=== PATIENT | female | born 1965 | race African-American/Black ===

== ENCOUNTER 2020-02-25 22:10 | Inpatient (IN) | payer MEDICARE ==
[~2020-02-25] VITALS: Ht 157.5 cm; Wt 77.0 kg
[~2020-02-25 22:10] MED LIST: BENADRYL25 MG ORAL; PEPCID20 MG ORAL; REGLAN10 MG ORAL
--- NOTE | 2020-02-26 01:00 | NUR ---
NURSE NOTES: Received patient from [facility] via ambulance. Patient arrived in [facility], patient able to transfer to hospital bed with no assist. Witnessed patient ambulate to bathroom with steady gait. Patient arrived with 2 IV access from [place]. Both patent, flushed with normal saline. Paged Dr Dalton for admission orders. VSS. Patient cellphone charging at nurse station.
[2020-02-26] MEDS: Morphine Sulfate 2mg/ml Inj(IV/IM USE ONLY) IVP PRN ×3 (01:36→20:19)
[2020-02-26] MEDS ORDERED: HYDROcodone/Acetamin 5/325 tab ORAL PRN (01:45)
[2020-02-26 02:01] VITALS: BP 118/78
[2020-02-26] MEDS: D5 1/2NS w/KCl 20mEq 1,000 ML IV SCH ×2 (02:17→18:17)
--- NOTE | 2020-02-26 03:00 | NUR ---
NURSE NOTES: Returned patient's cellphone after charging at nurse station.
--- NOTE | 2020-02-26 07:20 | NUR ---
NURSE NOTES: Received report from DAINA Boykin. Patient received lying in hospital bed, AAO x 4, able to make needs known, ambulatory with steady gait. Pt is on RA in no apparent respiratory distress. Pt is NPO except ice chips and meds d/t nausea. Pt still has c/o nausea but no vomiting reported per fast food shift lead. Pt Pt has pIV to R FA 20g running D5NS with 20mEq of KCl running 75 ml/hr and another pIV to L Hand 22g. LBM on 02/25/20. Skin intact. Pending MRI of abd without contrast today. Will continue POC.
--- NOTE | 2020-02-26 07:33 | NUR ---
HAND-OFF: Report given to DAINA Batres.
[2020-02-26 08:00] VITALS: BP 124/86
[2020-02-26 10:02] LABS: BASOPHILS % (AUTO) 2.4 % (0.0-2.0); EOSINOPHILS % (AUTO) 2.5 % (0.0-3.0); HEMATOCRIT 31.4 % (37.0-47.0); LYMPHOCYTES % (AUTO) 27.2 % (20.0-45.0); MEAN CORPUSCULAR VOLUME 86 FL (80-99); MONOCYTES % (AUTO) 10.7 % (1.0-10.0); NEUTROPHILS % (AUTO) 57.1 % (45.0-75.0); PLATELET COUNT 376 K/UL (150-450); RED BLOOD COUNT 3.66 M/UL (4.20-5.40); RED CELL DISTRIBUTION WIDTH 14.2 % (11.6-14.8); WHITE BLOOD COUNT 7.3 K/UL (4.8-10.8)
[2020-02-26 10:20] LABS: ALANINE AMINOTRANSFERASE 30 U/L (12-78); ALBUMIN 3.2 G/DL (3.4-5.0); ALBUMIN/GLOBULIN RATIO 0.9 (1.0-2.7); ALKALINE PHOSPHATASE 165 U/L (46-116); ANION GAP 8 mmol/L (5-15); ASPARTATE AMINO TRANSFERASE 44 U/L (15-37); BILIRUBIN,TOTAL 0.7 MG/DL (0.2-1.0); BLOOD UREA NITROGEN 5 mg/dL (7-18); CALCIUM 8.3 MG/DL (8.5-10.1); CARBON DIOXIDE 26 MMOL/L (21-32); CHLORIDE 103 MMOL/L (98-107); CREATININE 0.8 MG/DL (0.55-1.30); PHOSPHORUS 2.2 MG/DL (2.5-4.9); POTASSIUM 3.3 MMOL/L (3.5-5.1); SODIUM 137 MMOL/L (136-145)
--- NOTE | 2020-02-26 11:26 | History & Physical ---
History and Physical History & Physicial Dictated for Int Med-Dr Dalton no. [id number]. Ho Reynolds MD Feb 26, 2020 11:26
[2020-02-26] MEDS: Heparin 5000 units/ml inj SUBQ SCH ×2 (11:29→22:10)
--- NOTE | 2020-02-26 11:45 | Consultation ---
History of Present Illness General Date patient seen: Feb 26, 2020 Present Illness HPI 54 year old female with hx of cholecystectomy, gastric bypass presented to [facility] with CC of abdominal and flank pain. A CT of abdomen showed stranding surrounding both kidneys with fluid density extending into the paracolic gutters bilaterally. She is transferred to [facility] for further management. Allergies: Coded Allergies: No Known Allergies (Unverified , 05/14/16) Medication History Scheduled Famotidine (Pepcid), 20 MG ORAL Q12HR Metoclopramide Hcl* (Reglan*), 10 MG ORAL Q6HR Scheduled PRN Diphenhydramine Hcl* (Benadryl*), 25 MG ORAL BID PRN for Itching Patient History Healthcare decision maker Resuscitation status Advanced Directive on File Past Medical/Surgical History Past Medical/Surgical History: (1) History of gastric bypass (2) Hx of cholecystectomy (3) Hx of hysterectomy Review of Systems All Other Systems: negative except mentioned in HPI Physical Exam General Appearance: WD/WN Lines, tubes and drains: peripheral HEENT: normocephalic, atraumatic Neck: non-tender, supple Respiratory/Chest: chest wall non-tender, lungs clear Breasts: no masses Cardiovascular/Chest: normal peripheral pulses, normal rate Abdomen: normal bowel sounds, non tender Genitourinary/Rectal: normal genital exam Extremities: normal range of motion, non-tender Last 24 Hour Vital Signs Date Time Temp Pulse Resp B/P (MAP) Pulse Ox O2 Delivery O2 Flow Rate FiO2 02/26/20 09:00 Room Air 02/26/20 08:00 98.7 67 20 124/86 (99) 98 02/26/20 05:56 97.9 02/26/20 02:06 97.9 02/26/20 02:01 97.9 68 20 118/78 (91) 100 02/26/20 01:56 Room Air Intake and Output 02/25/20 02/26/20 19:00 07:00 Intake Total 0 ml Balance 0 ml Intake Oral 0 ml # Voids 2 Laboratory Tests Test 02/26/20 09:50 White Blood Count 7.3 K/UL (4.8-10.8) Red Blood Count 3.66 M/UL (4.20-5.40) L Hemoglobin 10.0 G/DL (12.0-16.0) L Hematocrit 31.4 % (37.0-47.0) L Mean Corpuscular Volume 86 FL (80-99) Mean Corpuscular Hemoglobin 27.5 PG (27.0-31.0) Mean Corpuscular Hemoglobin Concent 31.9 G/DL (32.0-36.0) L Red Cell Distribution Width 14.2 % (11.6-14.8) Platelet Count 376 K/UL (150-450) Mean Platelet Volume 4.4 FL (6.5-10.1) L Neutrophils (%) (Auto) 57.1 % (45.0-75.0) Lymphocytes (%) (Auto) 27.2 % (20.0-45.0) Monocytes (%) (Auto) 10.7 % (1.0-10.0) H Eosinophils (%) (Auto) 2.5 % (0.0-3.0) Basophils (%) (Auto) 2.4 % (0.0-2.0) H Erythrocyte Sedimentation Rate 32 MM/HR (0-30) H Sodium Level 137 MMOL/L (136-145) Potassium Level 3.3 MMOL/L (3.5-5.1) L Chloride Level 103 MMOL/L (98-107) Carbon Dioxide Level 26 MMOL/L (21-32) Anion Gap 8 mmol/L (5-15) Blood Urea Nitrogen 5 mg/dL (7-18) L Creatinine 0.8 MG/DL (0.55-1.30) Estimat Glomerular Filtration Rate > 60 mL/min (>60) Glucose Level 101 MG/DL (74-106) Calcium Level 8.3 MG/DL (8.5-10.1) L Phosphorus Level 2.2 MG/DL (2.5-4.9) L Magnesium Level 1.9 MG/DL (1.8-2.4) Total Bilirubin 0.7 MG/DL (0.2-1.0) Aspartate Amino Transf (AST/SGOT) 44 U/L (15-37) H Alanine Aminotransferase (ALT/SGPT) 30 U/L (12-78) Alkaline Phosphatase 165 U/L (46-116) H C-Reactive Protein, Quantitative < 0.4 mg/dL (0.00-0.90) Total Protein 6.9 G/DL (6.4-8.2) Albumin 3.2 G/DL (3.4-5.0) L Globulin 3.7 g/dL Albumin/Globulin Ratio 0.9 (1.0-2.7) L Height (Feet): 5 Height (Inches): 2.00 Weight (Pounds): 174 Medications Current Medications Medications (Trade) Dose Ordered Sig/Veronica Route PRN Reason Start Time Stop Time Status Last Admin Dose Admin Acetaminophen (Tylenol) 650 mg Q6H PRN ORAL Temp >100.5 02/26/20 01:45 03/27/20 01:44 Acetaminophen/ Hydrocodone Bitart ([place] 5/325) 2 tab Q6H PRN ORAL Moderate Pain (Pain Scale 4-6) 02/26/20 01:45 03/04/20 01:44 Dextrose/ Electrolytes 1,000 ml @ 75 mls/hr [id number] IV 02/26/20 02:30 03/27/20 02:29 02/26/20 02:17 Heparin Sodium (Porcine) (Heparin 5000 units/ml) 5,000 units EVERY 12 HOURS SUBQ 02/26/20 11:15 04/11/20 11:14 02/26/20 11:29 Morphine Sulfate (Morphine Sulfate) 2 mg Q4H PRN IVP Severe Pain (Pain Scale 7-10) 02/26/20 01:30 03/04/20 01:29 02/26/20 05:26 Ondansetron HCl (Zofran) 4 mg Q6H PRN IVP Nausea & Vomiting 02/26/20 01:30 03/27/20 01:29 02/26/20 03:15 Piperacillin Sod/ Tazobactam Sod 3.375 gm/Sodium Chloride 110 ml @ 27.5 mls/hr EVERY 8 HOURS IVPB 02/26/20 14:00 03/02/20 13:59 Assessment/Plan Problem List: (1) Acute abdominal pain ICD Codes: R10.9 - Unspecified abdominal pain SNOMED: 357063168 (2) Acute pyelonephritis ICD Codes: N10 - Acute pyelonephritis SNOMED: 60594032 (3) Hx of hysterectomy ICD Codes: Z90.710 - Acquired absence of both cervix and uterus SNOMED: 620389161, 557937189 (4) Hx of cholecystectomy ICD Codes: Z90.49 - Acquired absence of other specified parts of digestive tract SNOMED: 59566101, 829620444 (5) History of gastric bypass ICD Codes: Z98.84 - Bariatric surgery status SNOMED: 893549267 Assessment/Plan: NPO IV fluids alonso culture IV abx GI and ID to see check urine cultures symptomatic treatment dvt prophylaxis. Harriet Gilmore MD Feb 26, 2020 11:45
[2020-02-26 11:51] LABS: LACTATE DEHYDROGENASE 238 U/L (81-234)
[2020-02-26 12:00] VITALS: BP 127/82
--- NOTE | 2020-02-26 12:27 | Consultation ---
History of Present Illness General Date patient seen: Feb 26, 2020 Present Illness HPI 54 y/o F with hx of cholecystectomy 1999, sp gastric bypass 2000, sp hysterectomy 2007 is transferred from [place] to [facility] for 1 day of severe and acute abd pain and flank pain radiating to back. +nausea. She describes the pain as worse as any of her labor pains and she has 6 kids. Did not happened before. Had some anorexia. Noted that she single petechial lesion on L wrist but that she has had similar lesions on her L foot in the past. Also endorses occasional L leg cramping. Denied falls/trauma, f/c, vomiting, dysuria, hematuria, weakness/numbness, CP, SOB, vaginal discharge, joint pain/swelling, wt loss. Allergies: Coded Allergies: No Known Allergies (Unverified , 05/14/16) Medication History Scheduled Famotidine (Pepcid), 20 MG ORAL Q12HR Metoclopramide Hcl* (Reglan*), 10 MG ORAL Q6HR Scheduled PRN Diphenhydramine Hcl* (Benadryl*), 25 MG ORAL BID PRN for Itching Patient History Healthcare decision maker Resuscitation status Advanced Directive on File Patient History Narrative Pmhx: as above Shx: no t/e Fhx: non contributory Review of Systems All Other Systems: negative except mentioned in HPI Physical Exam Physical Exam Narrative General Appearance: WD/WN Lines, tubes and drains: peripheral HEENT: normocephalic, atraumatic Neck: non-tender, supple Respiratory/Chest: chest wall non-tender, lungs clear Cardiovascular/Chest: normal peripheral pulses, normal rate Abdomen: normal bowel sounds, non tender Extremities: normal range of motion, non-tender Last 24 Hour Vital Signs Date Time Temp Pulse Resp B/P (MAP) Pulse Ox O2 Delivery O2 Flow Rate FiO2 02/26/20 12:00 98.3 72 19 127/82 (97) 98 02/26/20 09:00 Room Air 02/26/20 08:00 98.7 67 20 124/86 (99) 98 02/26/20 05:56 97.9 02/26/20 02:06 97.9 02/26/20 02:01 97.9 68 20 118/78 (91) 100 02/26/20 01:56 Room Air Intake and Output 02/25/20 02/26/20 19:00 07:00 Intake Total 0 ml Balance 0 ml Intake Oral 0 ml # Voids 2 Laboratory Tests Test 02/26/20 09:50 White Blood Count 7.3 K/UL (4.8-10.8) Red Blood Count 3.66 M/UL (4.20-5.40) L Hemoglobin 10.0 G/DL (12.0-16.0) L Hematocrit 31.4 % (37.0-47.0) L Mean Corpuscular Volume 86 FL (80-99) Mean Corpuscular Hemoglobin 27.5 PG (27.0-31.0) Mean Corpuscular Hemoglobin Concent 31.9 G/DL (32.0-36.0) L Red Cell Distribution Width 14.2 % (11.6-14.8) Platelet Count 376 K/UL (150-450) Mean Platelet Volume 4.4 FL (6.5-10.1) L Neutrophils (%) (Auto) 57.1 % (45.0-75.0) Lymphocytes (%) (Auto) 27.2 % (20.0-45.0) Monocytes (%) (Auto) 10.7 % (1.0-10.0) H Eosinophils (%) (Auto) 2.5 % (0.0-3.0) Basophils (%) (Auto) 2.4 % (0.0-2.0) H Neutrophils % (Manual) Pending Lymphocytes % (Manual) Pending Platelet Estimate Pending Platelet Morphology Pending Erythrocyte Sedimentation Rate 32 MM/HR (0-30) H Reticulocyte Count Pending Sodium Level 137 MMOL/L (136-145) Potassium Level 3.3 MMOL/L (3.5-5.1) L Chloride Level 103 MMOL/L (98-107) Carbon Dioxide Level 26 MMOL/L (21-32) Anion Gap 8 mmol/L (5-15) Blood Urea Nitrogen 5 mg/dL (7-18) L Creatinine 0.8 MG/DL (0.55-1.30) Estimat Glomerular Filtration Rate > 60 mL/min (>60) Glucose Level 101 MG/DL (74-106) Calcium Level 8.3 MG/DL (8.5-10.1) L Phosphorus Level 2.2 MG/DL (2.5-4.9) L Magnesium Level 1.9 MG/DL (1.8-2.4) Iron Level Pending Unsaturated Iron Binding Pending Total Bilirubin 0.7 MG/DL (0.2-1.0) Aspartate Amino Transf (AST/SGOT) 44 U/L (15-37) H Alanine Aminotransferase (ALT/SGPT) 30 U/L (12-78) Alkaline Phosphatase 165 U/L (46-116) H Lactate Dehydrogenase 238 U/L (81-234) H C-Reactive Protein, Quantitative < 0.4 mg/dL (0.00-0.90) Total Protein 6.9 G/DL (6.4-8.2) Albumin 3.2 G/DL (3.4-5.0) L Globulin 3.7 g/dL Albumin/Globulin Ratio 0.9 (1.0-2.7) L Carcinoembryonic Antigen Pending Vitamin B12 Level Pending Folate Pending Height (Feet): 5 Height (Inches): 2.00 Weight (Pounds): 174 Medications Current Medications Medications (Trade) Dose Ordered Sig/Veronica Route PRN Reason Start Time Stop Time Status Last Admin Dose Admin Acetaminophen (Tylenol) 650 mg Q6H PRN ORAL Temp >100.5 02/26/20 01:45 03/27/20 01:44 Acetaminophen/ Hydrocodone Bitart ([place] 5/325) 2 tab Q6H PRN ORAL Moderate Pain (Pain Scale 4-6) 02/26/20 01:45 03/04/20 01:44 Dextrose/ Electrolytes 1,000 ml @ 75 mls/hr [id number] IV 02/26/20 02:30 03/27/20 02:29 02/26/20 02:17 Heparin Sodium (Porcine) (Heparin 5000 units/ml) 5,000 units EVERY 12 HOURS SUBQ 02/26/20 11:15 04/11/20 11:14 02/26/20 11:29 Morphine Sulfate (Morphine Sulfate) 2 mg Q4H PRN IVP Severe Pain (Pain Scale 7-10) 02/26/20 01:30 03/04/20 01:29 02/26/20 05:26 Ondansetron HCl (Zofran) 4 mg Q6H PRN IVP Nausea & Vomiting 02/26/20 01:30 03/27/20 01:29 02/26/20 03:15 Piperacillin Sod/ Tazobactam Sod 3.375 gm/Sodium Chloride 110 ml @ 27.5 mls/hr EVERY 8 HOURS IVPB 02/26/20 14:00 03/02/20 13:59 Assessment/Plan Assessment/Plan: Abx: Zosyn 02/25- Assessment: COVID19 neg x1 (02/24 SARS-COV2 PCR neg) Afebrile No leukocytosis Abdominal pain- unclear etiology- there is stranding and retroperitoneal infiltration but normal u/a, no abnormal kidney enhacement. no obvious pathology on imaging- r/o infectious vs inflammatory- r/o small vessel vasculitis (has a single petechial lesion on L wrist and hx of pethechial lession on L foot) -02/24 CT abd/p wo (at OSH): Stranding surrounding both kidneys with fluid density extending into the paracolic gutters bilaterally. Underlying pyelonephritis cannot be excluded due to non IV Contrast. Starnding also seen surrouding the posterior aspect of the pancreas which may be secondary to inflammatory changes surrounding the kidneys. CTA thoracic, abd and pelvic aorta: No aneurysms or dissection. Abnormal retroperitoneal infiltration with fat stranding and infiltration of the retroperitoneal fat, seen in the mediastinum as well as surrounding both kidneys, aorta and IVC and extending inferiorly into the presacral space of the pelvis. A source of inflammation is not evident on this exam. Normal renal enhancement, no findings which would suggest pyelonephritis. -02/24 US transvaginal (at OSH): Post hysterectomy, ovaries not visualized u/a neg nit, leuk est neg lipase, lactic acid normal ESR 21, CRP <0.2 Mild ASt elevation sp cholecystectomy 1999 sp gastric bypass 2000 sp hysterectomy 2007 Plan: -Continue empiric Zosyn #1 for now -f/u cx -Monitor CBC/CMP, temperatures; CMP am -u/a w/ reflex, HIV ag/ab, Acute hep panel -vasculitis and autoimmune work up Thank you for this consultation. Will continue to follow along with you. Discussed with Cindi Correia M.D. Feb 26, 2020 12:27
[2020-02-26 12:31] LABS: % IRON SATURATION 34 % (15-50); IRON 136 ug/dL (50-175); TOTAL IRON BINDING CAPACITY 395 ug/dL (250-450)
--- NOTE | 2020-02-26 13:15 | History and Physical Report ---
DATE OF ADMISSION: 02/26/2020 CHIEF COMPLAINT: The patient is a 54-year-old female who presents with a chief complaint of abdominal pain. HISTORY OF PRESENT ILLNESS: Began yesterday February 25, 2020 in the morning. The patient awoke with right lower quadrant pain. The pain then began to radiate to the right flank and right back. The patient initially presented to [facility] emergency room. A CT of the abdomen revealed stranding around the bilateral kidneys consistent with pyelonephritis. The patient was started on Zosyn at [facility]. The patient was transferred to [facility] for insurance purposes. The patient was admitted with right flank pain to rule out pyelonephritis versus renal calculi. REVIEW OF SYSTEMS: CONSTITUTIONAL: The patient denies weight loss or weight gain. The patient denies fevers or chills. HEENT: The patient denies ear or throat pain. The patient denies headache. CARDIOVASCULAR: The patient denies palpitation or chest pain. CHEST: The patient denies wheeze or shortness of breath. ABDOMINAL: The patient complains of right lower quadrant pain radiating to the right flank and right back as above. The patient admits to nausea without vomiting. The patient denies constipation or diarrhea. GENITOURINARY: The patient denies dysuria or increased frequency of urination. NEUROMUSCULAR: The patient denies seizures or generalized weakness. PAST MEDICAL HISTORY: The patient denies. PAST SURGICAL HISTORY: Significant for: 1. Cholecystectomy in 1999. 2. Gastric bypass in 2000. 3. Hysterectomy in 2007. CURRENT MEDICATIONS: The patient denies. ALLERGIES: To Naprosyn. SOCIAL HISTORY: The patient is . The patient lives with her adult daughter. The patient denies tobacco or alcohol use. The patient works in [employer]. PHYSICAL EXAMINATION: VITAL SIGNS: Temperature 97.7, respirations 16, pulse 64, blood pressure 147/77. GENERAL: The patient is well-developed and well-nourished female, in no apparent distress. HEENT: Eyes, pupils are equal and responsive to light and accommodation. Extraocular movements are intact. NECK: Supple without lymphadenopathy. CHEST: Lungs are clear to auscultation bilaterally without wheezes or rales. CARDIOVASCULAR: Regular rhythm and rate. S1-S2 are normal without murmurs, rubs, or gallops. ABDOMEN: Soft, nondistended with decreased bowel sounds. Pain to palpation in the right lower quadrant. There is no rebound noted. Voluntary guarding is noted in the right lower quadrant. NEUROLOGIC: Cranial nerves II through XII are grossly intact without focal deficits. Motor strength is 5/5 bilaterally. Deep tendon reflexes are 2+ plantar. LABORATORY AND DIAGNOSTIC DATA: Laboratory studies from [place], WBC 7.5, hemoglobin 11.9, hematocrit 37.6, platelets 431,000. Sodium 137, potassium 3.7, chloride 103, CO2 21, BUN 8, creatinine 0.64, glucose 119. AST was slightly elevated at 38. Urinalysis showed trace ketones. CT scan of the abdomen and pelvis revealed perinephric stranding bilaterally consistent with pyelonephritis. ASSESSMENT: This is a 54-year-old female. 1. Abdominal pain. 2. Nausea without vomiting. 3. Right flank pain. 4. Probable pyelonephritis. TREATMENT: Abdominal pain/nausea. A Gastroenterology consultation has been obtained with Dr. Alvin Lopez. An MRI of the abdomen is pending. Differential includes right renal calculus versus pyelonephritis. The patient has been started empirically on intravenous Zosyn. We will follow recommendations of Gastroenterology. Ho Reynolds M.D. DR: Constance JOB#: [id number] CC:
--- NOTE | 2020-02-26 13:53 | Diagnostic Imaging Report ---
Indication: Abdominal pain Technique: Coronal and axial single shot fast spin-echo breath-hold, axial T2 FRFSE, 2-D thick slab MRCP, AXIAL 2-D FIESTA fat saturated, axial 3-D dual echo breath-hold, water weighted axial LAVA FLEX, revealed 3-D MRCP images were obtained of the abdomen. MIP reconstructions were generated of the bile ducts Comparison: none Findings: The gallbladder is not visualized, presumably removed as a prior abdominal radiograph demonstrates cholecystectomy clips. There is mild ectasia of the common hepatic duct, which measures up to 9 mm in diameter. The common bile duct is normal in caliber, and there is no evidence of downstream obstructive lesion. Visualization of the intrahepatic ducts is somewhat limited as the dome of the liver is cut off of the exam on the coronal 3-D MRCP images, although intrahepatic ducts are visualized on the radial MRCP images. There is some free intraperitoneal fluid. There is considerable edema of the retroperitoneal fat completely surrounding both kidneys with fluid tracking inferiorly to the kidneys, probably along Gerota's fascia. There is fluid in the pelvis. There is also some edema of the left upper quadrant mesenteric fat. The pancreatic duct is mildly ectatic. The pancreas is equivocally slightly prominent but not frankly edematous. The kidneys are unremarkable in appearance except for a left renal cyst. The liver, spleen, adrenals are unremarkable. No retroperitoneal or mesenteric mass or adenopathy. There is equivocal minimal bladder wall thickening. Impression: Extensive edema, mostly of the retroperitoneal fat but also extending to some extent into the mesenteric root and into the left upper quadrant mesenteric fat. Small amount of associated free intraperitoneal fluid noted as well. Per discussion with referring physician, patient had prior outside CT scan suggesting bilateral pyelonephritis due to the presence of bilateral perinephric fat stranding. Findings could therefore be related to such. Note that no definite intrinsic renal parenchymal abnormality is demonstrated, but evaluation is limited in the absence of IV contrast. Note also that fatty infiltration in this extensive is unusual for nephritis, so the possibility of acute pancreatitis should also be considered. No definite intrinsic parenchymal abnormality noted except that the pancreas is equivocally slightly prominent The equivocal very slight wall thickening of the bladder Evidence of prior cholecystectomy. Mild ectasia of the common hepatic duct, likely related to postcholecystectomy state, but no evidence of biliary obstruction.
[2020-02-26] MEDS: Piperacillin/Tazobactam 3.375 GM in NS 110 ML IVPB SCH ×2 (14:01→22:08)
[2020-02-26 14:07] LABS: APPEARANCE,URINE CLEAR; BILIRUBIN, URINE NEGATIVE (NEGATIVE); COLOR,URINE YELLOW; GLUCOSE, URINE (UA) NEGATIVE (NEGATIVE); KETONES,URINE NEGATIVE (NEGATIVE); LEUKOCYTE ESTERASE ,URINE NEGATIVE (NEGATIVE); NITRITE,URINE NEGATIVE (NEGATIVE); PH,URINE 6 (4.5-8.0); PROTEIN,URINE NEGATIVE (NEGATIVE); UROBILINOGEN,URINE NORMAL MG/DL (0.0-1.0)
[2020-02-26 16:00] VITALS: BP 131/79
--- NOTE | 2020-02-26 16:02 | NUR ---
CASE MANAGEMENT:INITIAL REVIEW 54 YR OLD FEMALE TRANSFERRED TO [facility] FROM [facility];ABDOMINAL PAIN SI;ABDOMINAL PAIN 98.7 72 20 127/82 98% ON RA H/H 10.0/31.4 K+ 3.3 CHE 8.3 AST 44 ALP 135 LDH 238 ALB 3.2 UA - NEGATIVE ABD MRI ~ Extensive edema, mostly of the retroperitoneal fat but also extending to some extent into the mesenteric root and into the left upper quadrant mesenteric fat. Small amount of associated free intraperitoneal fluid noted as well. Per discussion with referring physician, patient had prior outside CT scan suggesting bilateral pyelonephritis due to the presence of bilateral perinephric fat stranding. Findings could therefore be related to such. Note that no definite intrinsic renal parenchymal abnormality is demonstrated, but evaluation is limited in the absence of IV contrast. Note also that fatty infiltration in this extensive is unusual for nephritis, so the possibility of acute pancreatitis should also be considered. No definite intrinsic parenchymal abnormality noted except that the pancreas is equivocally slightly prominent The equivocal very slight wall thickening of the bladder Evidence of prior cholecystectomy. Mild ectasia of the common hepatic vielka IS;MORPHINE IV ZOFRAN IV IVF D5 1/2 NS NORCO PO ADMITTED TO MED SURG MED SURG STATUS DCP;FROM HOME
--- NOTE | 2020-02-26 17:36 | Consultation ---
History of Present Illness General Date patient seen: Feb 26, 2020 Present Illness HPI 54 year old female presented to [facility] [place] from [place] for evaluation of abd pain. states began 1-2 days ago as severe generalized abdominal pain with nausea but no emesis. pain 10/10 cramping sharp. since improved. CT with stranding around kidney. surgery called to evaluate and assist with care. patient seen, chart reviewed patient examined. hx gastric bypass open 20 years ago. hx cholecystectomy. Allergies: Coded Allergies: No Known Allergies (Unverified , 05/14/16) COVID-19 Screening Contact w/high risk pt: No Experienced COVID-19 symptoms?: No Medication History Scheduled Famotidine (Pepcid), 20 MG ORAL Q12HR Metoclopramide Hcl* (Reglan*), 10 MG ORAL Q6HR Scheduled PRN Diphenhydramine Hcl* (Benadryl*), 25 MG ORAL BID PRN for Itching Patient History History Provided By: Patient Healthcare decision maker Resuscitation status Advanced Directive on File Past Medical/Surgical History Past Medical/Surgical History: (1) Acute pyelonephritis (2) Acute abdominal pain (3) Dysphagia (4) Abdominal pain (5) History of gastric bypass (6) Hx of cholecystectomy (7) Hx of hysterectomy Review of Systems Review of Symptoms General ROS: no weight loss or fever Psychological ROS: no depression or mood changes, no memory loss Ophthalmic ROS: no visual changes or eye irritation ENT ROS: no nasal congestion, hearing loss, dizziness Allergy and Immunology ROS: no allergic symptoms or urticaria Hematological and Lymphatic ROS: no swollen glands, unusual bleeding or bruising Endocrine ROS: no polyuria, polydipsia, weight changes, temperature intolerance Respiratory ROS: no cough, shortness of breath, or wheezing Cardiovascular ROS: no chest pain or dyspnea on exertion Gastrointestinal ROS: ++ abdominal pain, bright red blood in stool. Musculoskeletal ROS: no myalgias or arthralgias Neurological ROS: no TIA or stroke symptoms Dermatological ROS: no new or changing skin lesions, rashes or pruritis Physical Exam Physical Exam General appearance: alert, cooperative, no distress, appears stated age Head: Normocephalic, without obvious abnormality, atraumatic Eyes: conjunctivae/corneas clear. PERRL, EOM's intact. Fundi benign Throat: Lips, mucosa, and tongue normal. Teeth and gums normal Neck: supple, symmetrical, trachea midline, no adenopathy, thyroid: not enlarged, symmetric, no tenderness/mass/nodules, no carotid bruit and no JVD Lungs: clear to auscultation bilaterally Heart: regular rate and rhythm, S1, S2 normal, no murmur, click, rub or gallop Abdomen: soft, non-tender. Bowel sounds normal. No masses, no organomegaly Extremities: extremities normal, atraumatic, no cyanosis or edema Pulses: 2+ and symmetric Skin: Skin color, texture, turgor normal. No rashes or lesions Neurologic: Grossly normal Last 24 Hour Vital Signs Date Time Temp Pulse Resp B/P (MAP) Pulse Ox O2 Delivery O2 Flow Rate FiO2 02/26/20 16:00 98.2 70 19 131/79 (96) 98 02/26/20 12:00 98.3 72 19 127/82 (97) 98 02/26/20 09:00 Room Air 02/26/20 08:00 98.7 67 20 124/86 (99) 98 02/26/20 05:56 97.9 02/26/20 02:06 97.9 02/26/20 02:01 97.9 68 20 118/78 (91) 100 02/26/20 01:56 Room Air Intake and Output 02/25/20 02/26/20 19:00 07:00 Intake Total 0 ml Balance 0 ml Intake Oral 0 ml # Voids 2 Laboratory Tests Test 02/26/20 09:50 02/26/20 12:30 02/26/20 13:00 White Blood Count 7.3 K/UL (4.8-10.8) Red Blood Count 3.66 M/UL (4.20-5.40) L Hemoglobin 10.0 G/DL (12.0-16.0) L Hematocrit 31.4 % (37.0-47.0) L Mean Corpuscular Volume 86 FL (80-99) Mean Corpuscular Hemoglobin 27.5 PG (27.0-31.0) Mean Corpuscular Hemoglobin Concent 31.9 G/DL (32.0-36.0) L Red Cell Distribution Width 14.2 % (11.6-14.8) Platelet Count 376 K/UL (150-450) Mean Platelet Volume 4.4 FL (6.5-10.1) L Neutrophils (%) (Auto) 57.1 % (45.0-75.0) Lymphocytes (%) (Auto) 27.2 % (20.0-45.0) Monocytes (%) (Auto) 10.7 % (1.0-10.0) H Eosinophils (%) (Auto) 2.5 % (0.0-3.0) Basophils (%) (Auto) 2.4 % (0.0-2.0) H Differential Total Cells Counted 100 Neutrophils % (Manual) 60 % (45-75) Lymphocytes % (Manual) 33 % (20-45) Monocytes % (Manual) 6 % (1-10) Eosinophils % (Manual) 1 % (0-3) Basophils % (Manual) 0 % (0-2) Band Neutrophils 0 % (0-8) Platelet Estimate Adequate Platelet Morphology Normal Red Blood Cell Morphology Normal Erythrocyte Sedimentation Rate 32 MM/HR (0-30) H Reticulocyte Count 1.0 % (0.5-2.0) Sodium Level 137 MMOL/L (136-145) Potassium Level 3.3 MMOL/L (3.5-5.1) L Chloride Level 103 MMOL/L (98-107) Carbon Dioxide Level 26 MMOL/L (21-32) Anion Gap 8 mmol/L (5-15) Blood Urea Nitrogen 5 mg/dL (7-18) L Creatinine 0.8 MG/DL (0.55-1.30) Estimat Glomerular Filtration Rate > 60 mL/min (>60) Glucose Level 101 MG/DL (74-106) Calcium Level 8.3 MG/DL (8.5-10.1) L Phosphorus Level 2.2 MG/DL (2.5-4.9) L Magnesium Level 1.9 MG/DL (1.8-2.4) Iron Level 136 ug/dL (50-175) Total Iron Binding Capacity 395 ug/dL (250-450) Percent Iron Saturation 34 % (15-50) Unsaturated Iron Binding 259 ug/dL (112-346) Total Bilirubin 0.7 MG/DL (0.2-1.0) Aspartate Amino Transf (AST/SGOT) 44 U/L (15-37) H Alanine Aminotransferase (ALT/SGPT) 30 U/L (12-78) Alkaline Phosphatase 165 U/L (46-116) H Lactate Dehydrogenase 238 U/L (81-234) H C-Reactive Protein, Quantitative < 0.4 mg/dL (0.00-0.90) Total Protein 6.9 G/DL (6.4-8.2) Albumin 3.2 G/DL (3.4-5.0) L Globulin 3.7 g/dL Albumin/Globulin Ratio 0.9 (1.0-2.7) L Carcinoembryonic Antigen Pending Vitamin B12 Level 221 PG/ML (193-986) Folate 22.3 NG/ML (8.6-58.9) Urine Color Yellow Urine Appearance Clear Urine pH 6 (4.5-8.0) Urine Specific [place] 1.010 (1.005-1.035) Urine Protein Negative (NEGATIVE) Urine Glucose (UA) Negative (NEGATIVE) Urine Ketones Negative (NEGATIVE) Urine Blood Negative (NEGATIVE) Urine Nitrite Negative (NEGATIVE) Urine Bilirubin Negative (NEGATIVE) Urine Urobilinogen Normal MG/DL (0.0-1.0) Urine Leukocyte Esterase Negative (NEGATIVE) Prothrombin Time 10.7 SEC (9.30-11.50) Prothromb Time International Ratio 1.0 (0.9-1.1) Activated Partial Thromboplast Time 23 SEC (23-33) Height (Feet): 5 Height (Inches): 2.00 Weight (Pounds): 174 Medications Current Medications Medications (Trade) Dose Ordered Sig/Veronica Route PRN Reason Start Time Stop Time Status Last Admin Dose Admin Acetaminophen (Tylenol) 650 mg Q6H PRN ORAL Temp >100.5 02/26/20 01:45 03/27/20 01:44 Acetaminophen/ Hydrocodone Bitart ([place] 5/325) 2 tab Q6H PRN ORAL Moderate Pain (Pain Scale 4-6) 02/26/20 01:45 03/04/20 01:44 Dextrose/ Electrolytes 1,000 ml @ 75 mls/hr [id number] IV 02/26/20 02:30 03/27/20 02:29 02/26/20 02:17 Heparin Sodium (Porcine) (Heparin 5000 units/ml) 5,000 units EVERY 12 HOURS SUBQ 02/26/20 11:15 04/11/20 11:14 02/26/20 11:29 Morphine Sulfate (Morphine Sulfate) 2 mg Q4H PRN IVP Severe Pain (Pain Scale 7-10) 02/26/20 01:30 03/04/20 01:29 02/26/20 05:26 Ondansetron HCl (Zofran) 4 mg Q6H PRN IVP Nausea & Vomiting 02/26/20 01:30 03/27/20 01:29 02/26/20 03:15 Piperacillin Sod/ Tazobactam Sod 3.375 gm/Sodium Chloride 110 ml @ 27.5 mls/hr EVERY 8 HOURS IVPB 02/26/20 14:00 03/02/20 13:59 02/26/20 14:01 Assessment/Plan Problem List: (1) Acute pyelonephritis ICD Codes: N10 - Acute pyelonephritis SNOMED: 37515420 (2) Acute abdominal pain Assessment & Plan: The gallbladder is not visualized, presumably removed as a prior abdominal radiograph demonstrates cholecystectomy clips. There is mild ectasia of the common hepatic duct, which measures up to 9 mm in diameter. The common bile duct is normal in caliber, and there is no evidence of downstream obstructive lesion. Visualization of the intrahepatic ducts is somewhat limited as the dome of the liver is cut off of the exam on the coronal 3-D MRCP images, although intrahepatic ducts are visualized on the radial MRCP images. There is some free intraperitoneal fluid. There is considerable edema of the retroperitoneal fat completely surrounding both kidneys with fluid tracking inferiorly to the kidneys, probably along Gerota's fascia. There is fluid in the pelvis. There is also some edema of the left upper quadrant mesenteric fat. The pancreatic duct is mildly ectatic. The pancreas is equivocally slightly prominent but not frankly edematous. The kidneys are unremarkable in appearance except for a left renal cyst. The liver, spleen, adrenals are unremarkable. No retroperitoneal or mesenteric mass or adenopathy. There is equivocal minimal bladder wall thickening. Impression: Extensive edema, mostly of the retroperitoneal fat but also extending to some extent into the mesenteric root and into the left upper quadrant mesenteric fat. Small amount of associated free intraperitoneal fluid noted as well. Per discussion with referring physician, patient had prior outside CT scan suggesting bilateral pyelonephritis due to the presence of bilateral perinephric fat stranding. Findings could therefore be related to such. Note that no definite intrinsic renal parenchymal abnormality is demonstrated, but evaluation is limited in the absence of IV contrast. Note also that fatty infiltration in this extensive is unusual for nephritis, so the possibility of acute pancreatitis should also be considered. No definite intrinsic parenchymal abnormality noted except that the pancreas is equivocally slightly prominent The equivocal very slight wall thickening of the bladder Evidence of prior cholecystectomy. Mild ectasia of the common hepatic duct, likely related to postcholecystectomy state, but no evidence of biliary obstruction. ICD Codes: R10.9 - Unspecified abdominal pain SNOMED: 725531863 (3) Dysphagia ICD Codes: R13.10 - Dysphagia, unspecified SNOMED: 11810652, 068456111 (4) Abdominal pain Assessment & Plan: 54F acute abdominal pain. now improved with hydration, abx, and pain meds abd exam benign. abd soft nt/nd bs+ flank pain discomfort no n/v//f/c labs noted MRI reviewed prior CT no acute surgical intervention cont abx cont fluids okay for diet will follow with recs thank you ICD Codes: R10.9 - Unspecified abdominal pain SNOMED: 71106834 (5) History of gastric bypass ICD Codes: Z98.84 - Bariatric surgery status SNOMED: 092624727 (6) Hx of cholecystectomy ICD Codes: Z90.49 - Acquired absence of other specified parts of digestive tract SNOMED: 58479791, 938332825 (7) Hx of hysterectomy ICD Codes: Z90.710 - Acquired absence of both cervix and uterus SNOMED: 782402774, [id number] Socrates Hernandez Feb 26, 2020 17:36
--- NOTE | 2020-02-26 18:25 | NUR ---
NURSE NOTES: Pt has good appetite and is eating well. Dr. Lopez notified and confirmed to continue IVF at this time.
--- NOTE | 2020-02-26 19:10 | NUR ---
NURSE HAND-OFF: Important Events on Shift: no acute events during shift, patient ambulatory without assistance, on IVF, good appetite Patient Status: stable Diet: Regular Pending Orders: n/a Pending Results/Labs: labs in AM Pending MD notification: n/a Latest Vital Signs: Temperature 98.2 , Pulse 70 , B/P 131 /79 , Respiratory Rate 19 , O2 SAT 98 , Room Air, O2 Flow Rate . Vital Sign Comment: stable Latest Sales Fall Score: 20 Fall Risk: Low Risk Safety Measures: Call light Within Reach, Bed Alarm Zone 1, Side Rails Side Rails x2, Bed position Low and Locked. Fall Precautions: Patient Fall Education Report given to DAINA Melchor. Endorsed POC.
--- NOTE | 2020-02-26 19:11 | NUR ---
NURSE NOTES: Per patient, she would like to get a sleep aid for tonight. Dr. Dalton notified. Awaiting response. Will endorse to next shift nurse.
--- NOTE | 2020-02-26 19:20 | NUR ---
NURSE NOTES: Received order from Dr. Dalton for sleep aid for patient. Order read back and verified. Will carry out.
[2020-02-26 20:00] VITALS: BP 117/80
--- NOTE | 2020-02-26 20:30 | NUR ---
NURSE NOTES: Patient received in bed, awake and alert, Ambulatory with steady gait. IVF infusing as ordered. Patient c/o tenderness on her IV, new IV access obtained, IVF resumed. Patient medicated for pain level 5/10; but patient preferred morphine over norco, explained to patient indications of medication, verbalized understanding. Will continue [facility] plan of care.
--- NOTE | 2020-02-26 20:48 | General Progress Note ---
Subjective Allergies: Coded Allergies: No Known Allergies (Unverified , 05/14/16) Objective Last 24 Hour Vital Signs Date Time Temp Pulse Resp B/P (MAP) Pulse Ox O2 Delivery O2 Flow Rate FiO2 02/26/20 20:00 98.3 67 16 117/80 (92) 95 02/26/20 16:00 98.2 70 19 131/79 (96) 98 02/26/20 12:00 98.3 72 19 127/82 (97) 98 02/26/20 09:00 Room Air 02/26/20 08:00 98.7 67 20 124/86 (99) 98 02/26/20 05:56 97.9 02/26/20 02:06 97.9 02/26/20 02:01 97.9 68 20 118/78 (91) 100 02/26/20 01:56 Room Air Intake and Output 02/25/20 02/26/20 19:00 07:00 Intake Total 0 ml Balance 0 ml Intake Oral 0 ml # Voids 2 Laboratory Tests 02/26/20 09:50: White Blood Count 7.3, Red Blood Count 3.66L, Hemoglobin 10.0L, Hematocrit 31.4L , Mean Corpuscular Volume 86, Mean Corpuscular Hemoglobin 27.5, Mean Corpuscular Hemoglobin Concent 31.9L, Red Cell Distribution Width 14.2, Platelet Count 376, Mean Platelet Volume 4.4L, Neutrophils (%) (Auto) 57.1, Lymphocytes (%) (Auto) 27.2, Monocytes (%) (Auto) 10.7H, Eosinophils (%) (Auto) 2.5, Basophils (%) (Auto) 2.4H, Differential Total Cells Counted 100, Neutrophils % (Manual) 60, Lymphocytes % (Manual) 33, Monocytes % (Manual) 6, Eosinophils % (Manual) 1, Basophils % (Manual) 0, Band Neutrophils 0, Platelet Estimate Adequate, Platelet Morphology Normal, Red Blood Cell Morphology Normal, Erythrocyte Sedimentation Rate 32H, Reticulocyte Count 1.0, Sodium Level 137, Potassium Level 3.3L, Chloride Level 103, Carbon Dioxide Level 26, Anion Gap 8, Blood Urea Nitrogen 5L , Creatinine 0.8, Estimat Glomerular Filtration Rate > 60, Glucose Level 101, Calcium Level 8.3L, Phosphorus Level 2.2L, Magnesium Level 1.9, Iron Level 136, Total Iron Binding Capacity 395, Percent Iron Saturation 34, Unsaturated Iron Binding 259, Total Bilirubin 0.7, Aspartate Amino Transf (AST/SGOT) 44H, Alanine Aminotransferase (ALT/SGPT) 30, Alkaline Phosphatase 165H, Lactate Dehydrogenase 238H, C-Reactive Protein, Quantitative < 0.4, Total Protein 6.9, Albumin 3.2L, Globulin 3.7, Albumin/Globulin Ratio 0.9L, Carcinoembryonic Antigen [Pending], Vitamin B12 Level 221, Folate 22.3 02/26/20 12:30: Urine Color Yellow, Urine Appearance Clear, Urine pH 6, Urine Specific [place] 1.010, Urine Protein Negative, Urine Glucose (UA) Negative, Urine Ketones Negative, Urine Blood Negative, Urine Nitrite Negative, Urine Bilirubin Negative, Urine Urobilinogen Normal, Urine Leukocyte Esterase Negative 02/26/20 13:00: Prothrombin Time 10.7, Prothromb Time International Ratio 1.0, Activated Partial Thromboplast Time 23 Height (Feet): 5 Height (Inches): 2.00 Weight (Pounds): 174 Assessment/Plan Assessment/Plan: GI CONSULT Dictated ? Pyelo vs passed a stone will follow Thank you MD Jessica Zapien Payman MD Feb 26, 2020 20:48
--- NOTE | 2020-02-26 22:00 | NUR ---
NURSE NOTES: Patient asked for medication for sleep. Ken valladares given. Educated patient regarding medication and its side effects, verbalized understanding. Instructed to call for assistance if needed, verbalized understanding. Patient also made aware of stool collection, hat provided in the toilet. Patient requested to not be woken up at midnight for vital signs if she is sleeping.
[2020-02-26] MEDS: Zolpidem 5mg tab ORAL PRN (22:08)
--- NOTE | 2020-02-26 23:15 | Consultation ---
DATE OF CONSULTATION: 02/26/2020 GASTROENTEROLOGY CONSULTATION REPORT CONSULTING PHYSICIAN: Alvin Lopez MD. CHIEF COMPLAINT: I was asked to see this patient by Dr. Sven Dalton for evaluation of abdominal pain. HISTORY OF PRESENT ILLNESS: Patient is a pleasant 54-year-old woman who presented to [facility] with abdominal pain. She stated that the pain was about 1 day duration, more on the right side. She felt the pain was in the right lower side and radiated to the right back. This is the first time she is having this pain and now she feels better. However, she underwent workup with a standard pelvic ultrasound as well as abdominal pelvic CT scan at that hospital. She was transferred here after some abnormalities were identified. The patient had a colonoscopy about 2 or 3 years ago. She has had no history of kidney stones. She denies any hematochezia or vomiting. PAST MEDICAL HISTORY: Patient is otherwise healthy. MEDICATIONS: As an outpatient, none. FAMILY HISTORY: Positive for hypertension in mother and diabetes in father. SOCIAL HISTORY: Patient is . She has 6 children. She does not smoke or drink alcohol. PAST SURGICAL HISTORY: Status post Otis-en-Y gastric bypass surgery, status post cholecystectomy, status post hysterectomy. REVIEW OF SYSTEMS: Otherwise negative. PHYSICAL EXAMINATION: GENERAL: A pleasant woman, seen in her room. HEENT: Normocephalic and atraumatic. Sclerae anicteric. Oropharynx clear. NECK: Supple. CHEST: Clear to auscultation. CARDIOVASCULAR: Revealed a regular rate. ABDOMEN: Soft with a mild right lower quadrant tenderness to palpation without guarding or rebound. EXTREMITIES: Revealed no edema. LABORATORY DATA: Noted. ASSESSMENT: This patient presents with some right pelvic area pain, which is improving and she has had negative imaging workup except for some inflammatory changes seen around the kidneys, which are suggestive of pyelonephritis. She may have passed the stone causing transient inflammatory changes. Her urine however at this point is clear. She can be observed conservatively. I will continue IV fluids and advance diet as tolerated and follow her abdominal exam. Should her exam worsen or her symptoms recur, then further workup may be necessary. RECOMMENDATIONS: Per above discussion and per orders written in the chart. Thank you for asking me to participate in the care of this patient. Alvin Lopez M.D. DR: LEONOR JOB#: [id number] CC:
[2020-02-27 04:00] VITALS: BP 116/82
[2020-02-27] MEDS: Piperacillin/Tazobactam 3.375 GM in NS 110 ML IVPB SCH ×3 (05:07→22:01)
[2020-02-27] MEDS: D5 1/2NS w/KCl 20mEq 1,000 ML IV SCH ×2 (05:07→18:03)
[2020-02-27 05:15] VITALS: BP 116/82
[2020-02-27 05:57] LABS: BASOPHILS % (AUTO) 2.6 % (0.0-2.0); EOSINOPHILS % (AUTO) 4.8 % (0.0-3.0); HEMATOCRIT 28.5 % (37.0-47.0); HEMOGLOBIN 9.3 G/DL (12.0-16.0); MEAN CORPUSCULAR VOLUME 86 FL (80-99); MONOCYTES % (AUTO) 7.8 % (1.0-10.0); NEUTROPHILS % (AUTO) 36.8 % (45.0-75.0); PLATELET COUNT 329 K/UL (150-450); RED BLOOD COUNT 3.33 M/UL (4.20-5.40); RED CELL DISTRIBUTION WIDTH 14.1 % (11.6-14.8); WHITE BLOOD COUNT 5.9 K/UL (4.8-10.8)
[2020-02-27 06:39] LABS: ALANINE AMINOTRANSFERASE 23 U/L (12-78); ALBUMIN 2.8 G/DL (3.4-5.0); ALBUMIN/GLOBULIN RATIO 0.8 (1.0-2.7); ALKALINE PHOSPHATASE 163 U/L (46-116); AMYLASE 52 U/L (25-115); ANION GAP 9 mmol/L (5-15); ASPARTATE AMINO TRANSFERASE 30 U/L (15-37); BILIRUBIN,TOTAL 0.3 MG/DL (0.2-1.0); BLOOD UREA NITROGEN 10 mg/dL (7-18); CALCIUM 7.6 MG/DL (8.5-10.1); CARBON DIOXIDE 26 MMOL/L (21-32); CHLORIDE 106 MMOL/L (98-107); POTASSIUM 3.5 MMOL/L (3.5-5.1); SODIUM 141 MMOL/L (136-145)
[2020-02-27 06:45] LABS: PHOSPHORUS 2.7 MG/DL (2.5-4.9)
--- NOTE | 2020-02-27 06:49 | NUR ---
NURSE HAND-OFF: Important Events on Shift:[new IV access, given 1x pain medication and sleeping medication; slept well per patient] Patient Status: [sleeping] Diet: [Regular] Pending Orders: [] Pending Results/Labs:[see chart] Pending MD notification:[] Latest Vital Signs: Temperature 97.2 , Pulse 70 , B/P 116 /82 , Respiratory Rate 16 , O2 SAT 97 , Room Air, O2 Flow Rate . Vital Sign Comment: [] Latest Sales Fall Score: 35 Fall Risk: Medium Risk Safety Measures: Call light Within Reach, Bed Alarm Zone 1, Side Rails Side Rails x2, Bed position Low and Locked. Fall Precautions: Patient Fall Education
--- NOTE | 2020-02-27 07:20 | NUR ---
HAND-OFF: Report given to Lisy RN.
--- NOTE | 2020-02-27 07:51 | NUR ---
NURSE NOTES: Report received from DAINA Melchor. Patient observed to be awake, alert, and oriented x4 Seen sitting in bed having breakfast. Currently on room air, no s/sx of SOB/Distress, no c/o any pain as of the moment. IV site located on R Hand gauge 24 running D51/2 NS. Site is asymptomatic, inplace and intact. Bed placed on lowest and locked position, call light placed within reach and will continue to monitor.
[2020-02-27 08:00] VITALS: BP 113/78
[2020-02-27] MEDS: Heparin 5000 units/ml inj SUBQ SCH ×2 (09:11→20:24)
[2020-02-27 12:00] VITALS: BP 111/79
--- NOTE | 2020-02-27 12:07 | Pulmonology Progress Note ---
Subjective ROS Limited/Unobtainable: No Constitutional: Reports: no symptoms HEENT: Repors: no symptoms Respiratory: Reports: no symptoms Allergies: Coded Allergies: No Known Allergies (Unverified , 05/14/16) Objective Last 24 Hour Vital Signs Date Time Temp Pulse Resp B/P (MAP) Pulse Ox O2 Delivery O2 Flow Rate FiO2 02/27/20 09:00 Room Air 02/27/20 08:00 98.1 83 18 113/78 (90) 98 02/27/20 05:15 97.2 70 16 116/82 (93) 97 02/27/20 04:00 97.2 70 16 116/82 (93) 97 02/26/20 21:00 Room Air 02/26/20 20:00 98.3 67 16 117/80 (92) 95 02/26/20 16:00 98.2 70 19 131/79 (96) 98 Intake and Output 02/26/20 02/27/20 18:59 06:59 Intake Total 1120 ml 1037.5 ml Balance 1120 ml 1037.5 ml Intake Oral 1120 ml IV Total 1037.5 ml # Voids 4 3 General Appearance: WD/WN HEENT: normocephalic, atraumatic Respiratory: chest wall non-tender, lungs clear, normal breath sounds, no respiratory distress Breasts: no masses Cardiovascular: normal peripheral pulses, normal rate Abdomen: normal bowel sounds, soft, non tender Genitourinary: normal external genitalia Extremities: no cyanosis Skin: no rash 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 Lymphatic: no neck adenopathy Microbiology Date/Time Source Procedure Growth Status 02/26/20 12:30 Urine,Clean Catch Urine Culture - Preliminary NO GROWTH Resulted Laboratory Tests 02/26/20 12:30: Urine Color Yellow, Urine Appearance Clear, Urine pH 6, Urine Specific [place] 1.010, Urine Protein Negative, Urine Glucose (UA) Negative, Urine Ketones Negative, Urine Blood Negative, Urine Nitrite Negative, Urine Bilirubin Negative, Urine Urobilinogen Normal, Urine Leukocyte Esterase Negative 02/26/20 13:00: Prothrombin Time 10.7, Prothromb Time International Ratio 1.0, Activated Partial Thromboplast Time 23 02/27/20 05:14: White Blood Count 5.9, Red Blood Count 3.33L, Hemoglobin 9.3L, Hematocrit 28.5L, Mean Corpuscular Volume 86, Mean Corpuscular Hemoglobin 27.8, Mean Corpuscular Hemoglobin Concent 32.5, Red Cell Distribution Width 14.1, Platelet Count 329, Mean Platelet Volume 4.3L, Neutrophils (%) (Auto) 36.8L, Lymphocytes (%) (Auto) 48.0H, Monocytes (%) (Auto) 7.8, Eosinophils (%) (Auto) 4.8H, Basophils (%) (Auto) 2.6H, Erythrocyte Sedimentation Rate 30, Sodium Level 141, Potassium Level 3.5, Chloride Level 106, Carbon Dioxide Level 26, Anion Gap 9, Blood Urea Nitrogen 10, Creatinine 1.0, Estimat Glomerular Filtration Rate > 60, Glucose Level 112H, Calcium Level 7.6L, Phosphorus Level 2.7, Magnesium Level 1.9, Total Bilirubin 0.3, Aspartate Amino Transf (AST/SGOT) 30, Alanine Aminotransferase (ALT/SGPT) 23, Alkaline Phosphatase 163H, C-Reactive Protein, Quantitative < 0.4, Total Protein 6.1L, Albumin 2.8L, Globulin 3.3, Albumin/Globulin Ratio 0.8L , Amylase Level 52, Lipase 134, Rheumatoid Factor Screen [Pending], Cyclic Citrullinated Peptide IgG Ab [Pending], Anti-Nuclear Antibody Screen [Pending], c-ANCA Titer [Pending], p-ANCA Titer [Pending], Anti-Double Strand DNA Antibody [Pending], Rapid Plasma Reagin [Pending], Hepatitis A IgM Antibody [Pending], Hepatitis B Surface Antigen [Pending], Hepatitis B Core IgM Antibody [Pending], Hepatitis C Antibody [Pending], HIV (1&2) Antibody Rapid Negative 02/27/20 08:33: Stool Occult Blood [Pending] Current Medications Medications (Trade) Dose Ordered Sig/Veronica Route PRN Reason Start Time Stop Time Status Last Admin Dose Admin Acetaminophen (Tylenol) 650 mg Q6H PRN ORAL Temp >100.5 02/26/20 01:45 03/27/20 01:44 Acetaminophen/ Hydrocodone Bitart ([place] 5/325) 2 tab Q6H PRN ORAL Moderate Pain (Pain Scale 4-6) 02/26/20 01:45 03/04/20 01:44 02/27/20 09:18 Dextrose/ Electrolytes 1,000 ml @ 75 mls/hr [id number] IV 02/26/20 02:30 03/27/20 02:29 02/27/20 05:07 Heparin Sodium (Porcine) (Heparin 5000 units/ml) 5,000 units EVERY 12 HOURS SUBQ 02/26/20 11:15 04/11/20 11:14 02/27/20 09:11 Morphine Sulfate (Morphine Sulfate) 2 mg Q4H PRN IVP Severe Pain (Pain Scale 7-10) 02/26/20 01:30 03/04/20 01:29 02/26/20 20:19 Ondansetron HCl (Zofran) 4 mg Q6H PRN IVP Nausea & Vomiting 02/26/20 01:30 03/27/20 01:29 02/27/20 10:10 Piperacillin Sod/ Tazobactam Sod 3.375 gm/Sodium Chloride 110 ml @ 27.5 mls/hr EVERY 8 HOURS IVPB 02/26/20 14:00 03/02/20 13:59 02/27/20 05:07 Zolpidem Tartrate (Ambien) 5 mg HSPRN PRN ORAL Insomnia 02/26/20 19:30 03/04/20 19:29 02/26/20 22:08 Assessment/Plan Problems: (1) Acute abdominal pain (2) Acute pyelonephritis (3) Hx of hysterectomy (4) Hx of cholecystectomy (5) History of gastric bypass Assessment/Plan eating well IV fluids alonso culture, urine is negative IV abx GI and ID to see check urine cultures symptomatic treatment dvt prophylaxis. Harriet Gilmore MD Feb 27, 2020 12:07
--- NOTE | 2020-02-27 12:12 | General Progress Note ---
Subjective Allergies: Coded Allergies: No Known Allergies (Unverified , 05/14/16) Subjective feels better still with some pelvic pain tolerating PO Objective Last 24 Hour Vital Signs Date Time Temp Pulse Resp B/P (MAP) Pulse Ox O2 Delivery O2 Flow Rate FiO2 02/27/20 09:00 Room Air 02/27/20 08:00 98.1 83 18 113/78 (90) 98 02/27/20 05:15 97.2 70 16 116/82 (93) 97 02/27/20 04:00 97.2 70 16 116/82 (93) 97 02/26/20 21:00 Room Air 02/26/20 20:00 98.3 67 16 117/80 (92) 95 02/26/20 16:00 98.2 70 19 131/79 (96) 98 Intake and Output 02/26/20 02/27/20 19:00 07:00 Intake Total 1120 ml 1037.5 ml Balance 1120 ml 1037.5 ml Intake Oral 1120 ml IV Total 1037.5 ml # Voids 4 3 Laboratory Tests 02/26/20 12:30: Urine Color Yellow, Urine Appearance Clear, Urine pH 6, Urine Specific [place] 1.010, Urine Protein Negative, Urine Glucose (UA) Negative, Urine Ketones Negative, Urine Blood Negative, Urine Nitrite Negative, Urine Bilirubin N egative, Urine Urobilinogen Normal, Urine Leukocyte Esterase Negative 02/26/20 13:00: Prothrombin Time 10.7, Prothromb Time International Ratio 1.0, Activated Partial Thromboplast Time 23 02/27/20 05:14: White Blood Count 5.9, Red Blood Count 3.33L, Hemoglobin 9.3L, Hematocrit 28.5L, Mean Corpuscular Volume 86, Mean Corpuscular Hemoglobin 27.8, Mean Corpuscular Hemoglobin Concent 32.5, Red Cell Distribution Width 14.1, Platelet Count 329, Mean Platelet Volume 4.3L, Neutrophils (%) (Auto) 36.8L, Lymphocytes (%) (Auto) 48.0H, Monocytes (%) (Auto) 7.8, Eosinophils (%) (Auto) 4.8H, Basophils (%) (Auto) 2.6H, Erythrocyte Sedimentation Rate 30, Sodium Level 141, Potassium Level 3.5, Chloride Level 106, Carbon Dioxide Level 26, Anion Gap 9, Blood Urea Nitrogen 10, Creatinine 1.0, Estimat Glomerular Filtration Rate > 60, Glucose Level 112H, Calcium Level 7.6L, Phosphorus Level 2.7, Magnesium Level 1.9, Total Bilirubin 0.3, Aspartate Amino Transf (AST/SGOT) 30, Alanine Aminotransferase (ALT/SGPT) 23, Alkaline Phosphatase 163H, C-Reactive Protein, Quantitative < 0.4, Total Protein 6.1L, Albumin 2.8L, Globulin 3.3, Albumin/Globulin Ratio 0.8L , Amylase Level 52, Lipase 134, Rheumatoid Factor Screen [Pending], Cyclic Citrullinated Peptide IgG Ab [Pending], Anti-Nuclear Antibody Screen [Pending], c-ANCA Titer [Pending], p-ANCA Titer [Pending], Anti-Double Strand DNA Antibody [Pending], Rapid Plasma Reagin [Pending], Hepatitis A IgM Antibody [Pending], Hepatitis B Surface Antigen [Pending], Hepatitis B Core IgM Antibody [Pending], Hepatitis C Antibody [Pending], HIV (1&2) Antibody Rapid Negative 02/27/20 08:33: Stool Occult Blood [Pending] Height (Feet): 5 Height (Inches): 2.00 Weight (Pounds): 174 Objective WDWN NCAT supple CTA RRR Abd soft no edema Assessment/Plan Assessment/Plan: Assessment - pelvic pain - perinephric stranding - ? passed a stone - Anemia Recommendation - follow symptoms - po as tolerated - outpatient EGD/Colon -? urology input Alvin Lopez MD Feb 27, 2020 12:12
--- NOTE | 2020-02-27 13:59 | Infectious Diseases Prog Note ---
Assessment/Plan Abx: Dianasyn 02/25- Assessment: COVID19 neg x1 (02/24 SARS-COV2 PCR neg) Afebrile No leukocytosis Abdominal pain- unclear etiology- there is stranding and retroperitoneal infiltration but normal u/a, no abnormal kidney enhacement. no obvious pathology on imaging- r/o infectious vs inflammatory- r/o small vessel vasculitis (has a single petechial lesion on L wrist and hx of pethechial lession on L foot) -02/25 u/a neg; ucx NTD amylase, lipase normal -02/25 Abdomen MRI: Extensive edema, mostly of the retroperitoneal fat but also extending to some extent into the mesenteric root and into the left upper quadrant mesenteric fat. Small amount of associated free intraperitoneal fluid noted as well. Per discussion with referring physician, patient had prior outside CT scan suggesting bilateral pyelonephritis due to the presence of bilateral perinephric fat stranding. Findings could therefore be related to such. Note that no definite intrinsic renal parenchymal abnormality is demonstrated, but evaluation is limited in the absence of IV contrast. Note also that fatty infiltration in this extensive is unusual for nephritis, so the possibility of acute pancreatitis should also be considered. No definite intrinsic parenchymal abnormality noted except that the pancreas is equivocally slightly prominent. Th e equivocal very slight wall thickening of the bladder Evidence of prior cholecystectomy. Mild ectasia of the common hepatic duct, likely related to postcholecystectomy state, but no evidence of biliary obstruction. -02/24 CT abd/p wo (at OSH): Stranding surrounding both kidneys with fluid density extending into the paracolic gutters bilaterally. Underlying pyelonephritis cannot be excluded due to non IV Contrast. Starnding also seen surrouding the posterior aspect of the pancreas which may be secondary to inflammatory changes surrounding the kidneys. CTA thoracic, abd and pelvic aorta: No aneurysms or dissection. Abnormal retroperitoneal infiltration with fat stranding and infiltration of the retroperitoneal fat, seen in the mediastinum as well as surrounding both kidneys, aorta and IVC and extending inferiorly into the presacral space of the pelvis. A source of inflammation is not evident on this exam. Normal renal enhancement, no findings which would suggest pyelonephritis. -02/24 US transvaginal (at OSH): Post hysterectomy, ovaries not visualized u/a neg nit, leuk est neg lipase, lactic acid normal ESR 21, CRP <0.2 Mild ASt elevation, SP -HIV ag/ag neg, acute hep panel p sp cholecystectomy 1999 sp gastric bypass 2000 sp hysterectomy 2007 Plan: -Continue empiric Zosyn #2 for now -f/u cx -Monitor CBC/CMP, temperatures; CMP am -f/u ucx, Acute hep panel, RPR -f/u vasculitis and autoimmune work up -GI f/u Thank you for this consultation. Will continue to follow along with you. Discussed with RN. Subjective Allergies: Coded Allergies: No Known Allergies (Unverified , 05/14/16) afebrile at RA Objective Last 24 Hour Vital Signs Date Time Temp Pulse Resp B/P (MAP) Pulse Ox O2 Delivery O2 Flow Rate FiO2 02/27/20 12:00 98.5 63 19 111/79 (90) 99 02/27/20 09:00 Room Air 02/27/20 08:00 98.1 83 18 113/78 (90) 98 02/27/20 05:15 97.2 70 16 116/82 (93) 97 02/27/20 04:00 97.2 70 16 116/82 (93) 97 02/26/20 21:00 Room Air 02/26/20 20:00 98.3 67 16 117/80 (92) 95 02/26/20 16:00 98.2 70 19 131/79 (96) 98 Height (Feet): 5 Height (Inches): 2.00 Weight (Pounds): 174 General Appearance: WD/WN Lines, tubes and drains: peripheral HEENT: normocephalic, atraumatic Neck: non-tender, supple Respiratory/Chest: chest wall non-tender, lungs clear Cardiovascular/Chest: normal peripheral pulses, normal rate Abdomen: normal bowel sounds, non tender Extremities: normal range of motion, non-tender Microbiology Date/Time Source Procedure Growth Status 02/26/20 12:30 Urine,Clean Catch Urine Culture - Preliminary NO GROWTH Resulted Laboratory Tests Test 02/27/20 05:14 02/27/20 08:33 White Blood Count 5.9 K/UL (4.8-10.8) Red Blood Count 3.33 M/UL (4.20-5.40) L Hemoglobin 9.3 G/DL (12.0-16.0) L Hematocrit 28.5 % (37.0-47.0) L Mean Corpuscular Volume 86 FL (80-99) Mean Corpuscular Hemoglobin 27.8 PG (27.0-31.0) Mean Corpuscular Hemoglobin Concent 32.5 G/DL (32.0-36.0) Red Cell Distribution Width 14.1 % (11.6-14.8) Platelet Count 329 K/UL (150-450) Mean Platelet Volume 4.3 FL (6.5-10.1) L Neutrophils (%) (Auto) 36.8 % (45.0-75.0) L Lymphocytes (%) (Auto) 48.0 % (20.0-45.0) H Monocytes (%) (Auto) 7.8 % (1.0-10.0) Eosinophils (%) (Auto) 4.8 % (0.0-3.0) H Basophils (%) (Auto) 2.6 % (0.0-2.0) H Erythrocyte Sedimentation Rate 30 MM/HR (0-30) Sodium Level 141 MMOL/L (136-145) Potassium Level 3.5 MMOL/L (3.5-5.1) Chloride Level 106 MMOL/L (98-107) Carbon Dioxide Level 26 MMOL/L (21-32) Anion Gap 9 mmol/L (5-15) Blood Urea Nitrogen 10 mg/dL (7-18) Creatinine 1.0 MG/DL (0.55-1.30) Estimat Glomerular Filtration Rate > 60 mL/min (>60) Glucose Level 112 MG/DL (74-106) H Calcium Level 7.6 MG/DL (8.5-10.1) L Phosphorus Level 2.7 MG/DL (2.5-4.9) Magnesium Level 1.9 MG/DL (1.8-2.4) Total Bilirubin 0.3 MG/DL (0.2-1.0) Aspartate Amino Transf (AST/SGOT) 30 U/L (15-37) Alanine Aminotransferase (ALT/SGPT) 23 U/L (12-78) Alkaline Phosphatase 163 U/L (46-116) H C-Reactive Protein, Quantitative < 0.4 mg/dL (0.00-0.90) Total Protein 6.1 G/DL (6.4-8.2) L Albumin 2.8 G/DL (3.4-5.0) L Globulin 3.3 g/dL Albumin/Globulin Ratio 0.8 (1.0-2.7) L Amylase Level 52 U/L (25-115) Lipase 134 U/L (73-393) Rheumatoid Factor Screen Pending Cyclic Citrullinated Peptide IgG Ab Pending Anti-Nuclear Antibody Screen Pending c-ANCA Titer Pending p-ANCA Titer Pending Anti-Double Strand DNA Antibody Pending Rapid Plasma Reagin Pending Hepatitis A IgM Antibody Pending Hepatitis B Surface Antigen Pending Hepatitis B Core IgM Antibody Pending Hepatitis C Antibody Pending HIV (1&2) Antibody Rapid Negative (NEGATIVE) Stool Occult Blood Pending Current Medications Medications (Trade) Dose Ordered Sig/Veronica Route PRN Reason Start Time Stop Time Status Last Admin Dose Admin Acetaminophen (Tylenol) 650 mg Q6H PRN ORAL Temp >100.5 02/26/20 01:45 03/27/20 01:44 Acetaminophen/ Hydrocodone Bitart ([place] 5/325) 2 tab Q6H PRN ORAL Moderate Pain (Pain Scale 4-6) 02/26/20 01:45 03/04/20 01:44 02/27/20 09:18 Dextrose/ Electrolytes 1,000 ml @ 75 mls/hr [id number] IV 02/26/20 02:30 03/27/20 02:29 02/27/20 05:07 Heparin Sodium (Porcine) (Heparin 5000 units/ml) 5,000 units EVERY 12 HOURS SUBQ 02/26/20 11:15 04/11/20 11:14 02/27/20 09:11 Morphine Sulfate (Morphine Sulfate) 2 mg Q4H PRN IVP Severe Pain (Pain Scale 7-10) 02/26/20 01:30 03/04/20 01:29 02/26/20 20:19 Ondansetron HCl (Zofran) 4 mg Q6H PRN IVP Nausea & Vomiting 02/26/20 01:30 03/27/20 01:29 02/27/20 10:10 Piperacillin Sod/ Tazobactam Sod 3.375 gm/Sodium Chloride 110 ml @ 27.5 mls/hr EVERY 8 HOURS IVPB 02/26/20 14:00 03/02/20 13:59 02/27/20 05:07 Zolpidem Tartrate (Ambien) 5 mg HSPRN PRN ORAL Insomnia 02/26/20 19:30 03/04/20 19:29 02/26/20 22:08 Cindi Bullard M.D. Feb 27, 2020 13:59
[2020-02-27] MEDS: Morphine Sulfate 2mg/ml Inj(IV/IM USE ONLY) IVP PRN ×2 (14:50→20:24)
--- NOTE | 2020-02-27 15:58 | Surgery Progress Note ---
Surgery Progress Note Subjective Symptoms: improved, tolerating diet, voiding well, passing flatus, pain decreased Objective Last 24 Hour Vital Signs Date Time Temp Pulse Resp B/P (MAP) Pulse Ox O2 Delivery O2 Flow Rate FiO2 02/27/20 12:00 98.5 63 19 111/79 (90) 99 02/27/20 09:00 Room Air 02/27/20 08:00 98.1 83 18 113/78 (90) 98 02/27/20 05:15 97.2 70 16 116/82 (93) 97 02/27/20 04:00 97.2 70 16 116/82 (93) 97 02/26/20 21:00 Room Air 02/26/20 20:00 98.3 67 16 117/80 (92) 95 02/26/20 16:00 98.2 70 19 131/79 (96) 98 I&O Intake and Output 02/26/20 02/27/20 19:00 07:00 Intake Total 1120 ml 1037.5 ml Balance 1120 ml 1037.5 ml Intake Oral 1120 ml IV Total 1037.5 ml # Voids 4 3 Cardiovascular: RSR Respiratory: clear Abdomen: soft, non-tender, present bowel sounds, non-distended Extremities: no edema, no tenderness, no cyanosis Laboratory Tests Test 02/27/20 05:14 02/27/20 08:33 White Blood Count 5.9 K/UL (4.8-10.8) Red Blood Count 3.33 M/UL (4.20-5.40) L Hemoglobin 9.3 G/DL (12.0-16.0) L Hematocrit 28.5 % (37.0-47.0) L Mean Corpuscular Volume 86 FL (80-99) Mean Corpuscular Hemoglobin 27.8 PG (27.0-31.0) Mean Corpuscular Hemoglobin Concent 32.5 G/DL (32.0-36.0) Red Cell Distribution Width 14.1 % (11.6-14.8) Platelet Count 329 K/UL (150-450) Mean Platelet Volume 4.3 FL (6.5-10.1) L Neutrophils (%) (Auto) 36.8 % (45.0-75.0) L Lymphocytes (%) (Auto) 48.0 % (20.0-45.0) H Monocytes (%) (Auto) 7.8 % (1.0-10.0) Eosinophils (%) (Auto) 4.8 % (0.0-3.0) H Basophils (%) (Auto) 2.6 % (0.0-2.0) H Erythrocyte Sedimentation Rate 30 MM/HR (0-30) Sodium Level 141 MMOL/L (136-145) Potassium Level 3.5 MMOL/L (3.5-5.1) Chloride Level 106 MMOL/L (98-107) Carbon Dioxide Level 26 MMOL/L (21-32) Anion Gap 9 mmol/L (5-15) Blood Urea Nitrogen 10 mg/dL (7-18) Creatinine 1.0 MG/DL (0.55-1.30) Estimat Glomerular Filtration Rate > 60 mL/min (>60) Glucose Level 112 MG/DL (74-106) H Calcium Level 7.6 MG/DL (8.5-10.1) L Phosphorus Level 2.7 MG/DL (2.5-4.9) Magnesium Level 1.9 MG/DL (1.8-2.4) Total Bilirubin 0.3 MG/DL (0.2-1.0) Aspartate Amino Transf (AST/SGOT) 30 U/L (15-37) Alanine Aminotransferase (ALT/SGPT) 23 U/L (12-78) Alkaline Phosphatase 163 U/L (46-116) H C-Reactive Protein, Quantitative < 0.4 mg/dL (0.00-0.90) Total Protein 6.1 G/DL (6.4-8.2) L Albumin 2.8 G/DL (3.4-5.0) L Globulin 3.3 g/dL Albumin/Globulin Ratio 0.8 (1.0-2.7) L Amylase Level 52 U/L (25-115) Lipase 134 U/L (73-393) Rheumatoid Factor Screen Pending Cyclic Citrullinated Peptide IgG Ab Pending Anti-Nuclear Antibody Screen Pending c-ANCA Titer Pending p-ANCA Titer Pending Anti-Double Strand DNA Antibody Pending Rapid Plasma Reagin Pending Hepatitis A IgM Antibody Pending Hepatitis B Surface Antigen Pending Hepatitis B Core IgM Antibody Pending Hepatitis C Antibody Pending HIV (1&2) Antibody Rapid Negative (NEGATIVE) Stool Occult Blood Pending Plan Problems: (1) Acute pyelonephritis (2) Acute abdominal pain Assessment & Plan: The gallbladder is not visualized, presumably removed as a prior abdominal radiograph demonstrates cholecystectomy clips. There is mild ectasia of the common hepatic duct, which measures up to 9 mm in diameter. The common bile duct is normal in caliber, and there is no evidence of downstream obstructive lesion. Visualization of the intrahepatic ducts is somewhat limited as the dome of the liver is cut off of the exam on the coronal 3-D MRCP images, although intrahepatic ducts are visualized on the radial MRCP images. There is some free intraperitoneal fluid. There is considerable edema of the retroperitoneal fat completely surrounding both kidneys with fluid tracking inferiorly to the kidneys, probably along Gerota's fascia. There is fluid in the pelvis. There is also some edema of the left upper quadrant mesenteric fat. The pancreatic duct is mildly ectatic. The pancreas is equivocally slightly pro minent but not frankly edematous. The kidneys are unremarkable in appearance except for a left renal cyst. The liver, spleen, adrenals are unremarkable. No retroperitoneal or mesenteric mass or adenopathy. There is equivocal minimal bladder wall thickening. Impression: Extensive edema, mostly of the retroperitoneal fat but also extending to some extent into the mesenteric root and into the left upper quadrant mesenteric fat. Small amount of associated free intraperitoneal fluid noted as well. Per discus clint with referring physician, patient had prior outside CT scan suggesting bilateral pyelonephritis due to the presence of bilateral perinephric fat stranding. Findings could therefore be related to such. Note that no definite intrinsic renal parenchymal abnormality is demonstrated, but evaluation is limited in the absence of IV contrast. Note also that fatty infiltration in this extensive is unusual for nephritis, so the possibility of acute pancreatitis should also be considered. No definite intrinsic parenchymal abnormality noted except that the pancreas is equivocally slightly prominent The equivocal very slight wall thickening of the bladder Evidence of prior cholecystectomy. Mild ectasia of the common hepatic duct, likely related to postcholecystectomy state, but no evidence of biliary obstruction. (3) Dysphagia (4) Abdominal pain Assessment & Plan: 54F acute abdominal pain. now improved with hydration, abx, and pain meds abd exam benign. abd soft nt/nd bs+ flank pain discomfort no n/v//f/c labs noted MRI reviewed prior CT no acute surgical intervention cont abx cont fluids okay for diet will follow with recs thank you (5) History of gastric bypass (6) Hx of cholecystectomy (7) Hx of hysterectomy Socrates Hernandez Feb 27, 2020 15:58
[2020-02-27 16:00] VITALS: BP 117/81
--- NOTE | 2020-02-27 19:25 | NUR ---
NURSE HAND-OFF: Important Events on Shift:NONE Patient Status: stable Diet: regular Pending Orders: n/a Pending Results/Labs:n/a Pending MD notification:n/a Latest Vital Signs: Temperature 97.3 , Pulse 70 , B/P 117 /81 , Respiratory Rate 20 , O2 SAT 98 , Room Air, O2 Flow Rate . Vital Sign Comment: stable Latest Sales Fall Score: 35 Fall Risk: Medium Risk Safety Measures: Call light Within Reach, Bed Alarm Zone 1, Side Rails Side Rails x2, Bed position Low and Locked. Fall Precautions: Patient Fall Education Report given to DAINA Melchor.
--- NOTE | 2020-02-27 19:49 | Internal Med Progress Note ---
Subjective Date of Service: Feb 27, 2020 Physician Name Ho Reynolds Attending Physician Sven Dalton MD Current Medications Medications (Trade) Dose Ordered Sig/Veronica Route PRN Reason Start Time Stop Time Status Last Admin Dose Admin Acetaminophen (Tylenol) 650 mg Q6H PRN ORAL Temp >100.5 02/26/20 01:45 03/27/20 01:44 Acetaminophen/ Hydrocodone Bitart ([place] 5/325) 2 tab Q6H PRN ORAL Moderate Pain (Pain Scale 4-6) 02/26/20 01:45 03/04/20 01:44 02/27/20 09:18 Dextrose/ Electrolytes 1,000 ml @ 75 mls/hr [id number] IV 02/26/20 02:30 03/27/20 02:29 02/27/20 18:03 Heparin Sodium (Porcine) (Heparin 5000 units/ml) 5,000 units EVERY 12 HOURS SUBQ 02/26/20 11:15 04/11/20 11:14 02/27/20 09:11 Morphine Sulfate (Morphine Sulfate) 2 mg Q4H PRN IVP Severe Pain (Pain Scale 7-10) 02/26/20 01:30 03/04/20 01:29 02/27/20 14:50 Ondansetron HCl (Zofran) 4 mg Q6H PRN IVP Nausea & Vomiting 02/26/20 01:30 03/27/20 01:29 02/27/20 10:10 Piperacillin Sod/ Tazobactam Sod 3.375 gm/Sodium Chloride 110 ml @ 27.5 mls/hr EVERY 8 HOURS IVPB 02/26/20 14:00 03/02/20 13:59 02/27/20 14:50 Zolpidem Tartrate (Ambien) 5 mg HSPRN PRN ORAL Insomnia 02/26/20 19:30 03/04/20 19:29 02/26/20 22:08 Allergies: Coded Allergies: No Known Allergies (Unverified , 05/14/16) ROS Limited/Unobtainable: No Constitutional: Reports: no symptoms HEENT: Reports: no symptoms Cardiovascular: Reports: no symptoms Respiratory: Reports: no symptoms Gastrointestinal/Abdominal: Reports: abdominal pain Genitourinary: Reports: no symptoms Neurologic/Psychiatric: Reports: no symptoms Subjective 54 YO F admitted with abdominal pain. Now pyelonephritis. Cover for Int Raudel-Dr Dalton Objective Last Vital Signs Date Time Temp Pulse Resp B/P (MAP) Pulse Ox O2 Delivery O2 Flow Rate FiO2 02/27/20 16:00 97.3 70 20 117/81 (93) 98 02/27/20 09:00 Room Air Laboratory Tests Test 02/27/20 05:14 02/27/20 08:33 White Blood Count 5.9 K/UL (4.8-10.8) Red Blood Count 3.33 M/UL (4.20-5.40) L Hemoglobin 9.3 G/DL (12.0-16.0) L Hematocrit 28.5 % (37.0-47.0) L Mean Corpuscular Volume 86 FL (80-99) Mean Corpuscular Hemoglobin 27.8 PG (27.0-31.0) Mean Corpuscular Hemoglobin Concent 32.5 G/DL (32.0-36.0) Red Cell Distribution Width 14.1 % (11.6-14.8) Platelet Count 329 K/UL (150-450) Mean Platelet Volume 4.3 FL (6.5-10.1) L Neutrophils (%) (Auto) 36.8 % (45.0-75.0) L Lymphocytes (%) (Auto) 48.0 % (20.0-45.0) H Monocytes (%) (Auto) 7.8 % (1.0-10.0) Eosinophils (%) (Auto) 4.8 % (0.0-3.0) H Basophils (%) (Auto) 2.6 % (0.0-2.0) H Erythrocyte Sedimentation Rate 30 MM/HR (0-30) Sodium Level 141 MMOL/L (136-145) Potassium Level 3.5 MMOL/L (3.5-5.1) Chloride Level 106 MMOL/L (98-107) Carbon Dioxide Level 26 MMOL/L (21-32) Anion Gap 9 mmol/L (5-15) Blood Urea Nitrogen 10 mg/dL (7-18) Creatinine 1.0 MG/DL (0.55-1.30) Estimat Glomerular Filtration Rate > 60 mL/min (>60) Glucose Level 112 MG/DL (74-106) H Calcium Level 7.6 MG/DL (8.5-10.1) L Phosphorus Level 2.7 MG/DL (2.5-4.9) Magnesium Level 1.9 MG/DL (1.8-2.4) Total Bilirubin 0.3 MG/DL (0.2-1.0) Aspartate Amino Transf (AST/SGOT) 30 U/L (15-37) Alanine Aminotransferase (ALT/SGPT) 23 U/L (12-78) Alkaline Phosphatase 163 U/L (46-116) H C-Reactive Protein, Quantitative < 0.4 mg/dL (0.00-0.90) Total Protein 6.1 G/DL (6.4-8.2) L Albumin 2.8 G/DL (3.4-5.0) L Globulin 3.3 g/dL Albumin/Globulin Ratio 0.8 (1.0-2.7) L Amylase Level 52 U/L (25-115) Lipase 134 U/L (73-393) Rheumatoid Factor Screen Pending Cyclic Citrullinated Peptide IgG Ab Pending Anti-Nuclear Antibody Screen Pending c-ANCA Titer Pending p-ANCA Titer Pending Anti-Double Strand DNA Antibody Pending Rapid Plasma Reagin Pending Hepatitis A IgM Antibody Pending Hepatitis B Surface Antigen Pending Hepatitis B Core IgM Antibody Pending Hepatitis C Antibody Pending HIV (1&2) Antibody Rapid Negative (NEGATIVE) Stool Occult Blood Pending Microbiology Date/Time Source Procedure Growth Status 02/26/20 12:30 Urine,Clean Catch Urine Culture - Preliminary NO GROWTH Resulted Intake and Output 02/26/20 02/27/20 19:00 07:00 Intake Total 1120 ml 1037.5 ml Balance 1120 ml 1037.5 ml Intake Oral 1120 ml IV Total 1037.5 ml # Voids 4 3 Objective PHYSICAL EXAMINATION: GENERAL: The patient is well-developed and well-nourished female, in no apparent distress. HEENT: Eyes, pupils are equal and responsive to light and accommodation. Extraocular movements are intact. NECK: Supple without lymphadenopathy. CHEST: Lungs are clear to auscultation bilaterally without wheezes or rales. CARDIOVASCULAR: Regular rhythm and rate. S1-S2 are normal without murmurs, rubs, or gallops. ABDOMEN: Soft, nondistended with decreased bowel sounds. Pain to palpation in the right lower quadrant. There is no rebound noted. Voluntary guarding is noted in the right lower quadrant. NEUROLOGIC: Cranial nerves II through XII are grossly intact without focal deficits. Motor strength is 5/5 bilaterally. Deep tendon reflexes are 2+ plantar. Assessment/Plan Assessment/Plan ASSESSMENT: This is a 54-year-old female. 1. Abdominal pain. 2. Nausea without vomiting. 3. Right flank pain. 4. Probable pyelonephritis. TREATMENT: 1. Abdominal pain/nausea. A Gastroenterology consultation has been obtained with Dr. Alvin Lopez. An MRI of the abdomen=diffuse edema of retroperitoneal fat. Surgery=Dr Hernandez. Differential includes right renal calculus versus pyelonephritis. The patient has been started empirically on intravenous Zosyn. We will follow recommendations of Gastroenterology and surgery Ho Reynolds MD Feb 27, 2020 19:49
[2020-02-27 19:57] VITALS: BP 132/86
--- NOTE | 2020-02-27 20:00 | NUR ---
NURSE NOTES: Patient received in bed, awake and alert. No acute cardiorespiratory distress. C/o dull pain, will medicate as prescribed. IVF infusing as ordered. Will continue with plan of care.
[2020-02-27] MEDS: Zolpidem 5mg tab ORAL PRN (22:01)
[2020-02-28 04:00] VITALS: BP 117/73
[2020-02-28] MEDS: Piperacillin/Tazobactam 3.375 GM in NS 110 ML IVPB SCH ×3 (05:12→21:10)
[2020-02-28 07:12] LABS: BASOPHILS % (AUTO) 3.5 % (0.0-2.0); HEMATOCRIT 28.4 % (37.0-47.0); HEMOGLOBIN 8.9 G/DL (12.0-16.0); LYMPHOCYTES % (AUTO) 42.7 % (20.0-45.0); MEAN CORPUSCULAR VOLUME 86 FL (80-99); MONOCYTES % (AUTO) 8.6 % (1.0-10.0); NEUTROPHILS % (AUTO) 41.2 % (45.0-75.0); PLATELET COUNT 311 K/UL (150-450); RED BLOOD COUNT 3.31 M/UL (4.20-5.40); RED CELL DISTRIBUTION WIDTH 14.3 % (11.6-14.8); WHITE BLOOD COUNT 5.2 K/UL (4.8-10.8)
[2020-02-28 07:26] LABS: ALANINE AMINOTRANSFERASE 26 U/L (12-78); ALBUMIN 2.8 G/DL (3.4-5.0); ALBUMIN/GLOBULIN RATIO 0.9 (1.0-2.7); ALKALINE PHOSPHATASE 135 U/L (46-116); ANION GAP 7 mmol/L (5-15); ASPARTATE AMINO TRANSFERASE 33 U/L (15-37); BILIRUBIN,TOTAL 0.3 MG/DL (0.2-1.0); BLOOD UREA NITROGEN 6 mg/dL (7-18); CALCIUM 8.3 MG/DL (8.5-10.1); CARBON DIOXIDE 28 MMOL/L (21-32); CHLORIDE 106 MMOL/L (98-107); CREATININE 0.8 MG/DL (0.55-1.30); POTASSIUM 3.6 MMOL/L (3.5-5.1); SODIUM 141 MMOL/L (136-145)
--- NOTE | 2020-02-28 07:46 | NUR ---
NURSE HAND-OFF: Important Events on Shift:[uneventful. patient wants to speak with MD regarding progress and plan of care] Patient Status: [stable] Diet: [Regular] Pending Orders: [] Pending Results/Labs:[] Pending MD notification:[] Latest Vital Signs: Temperature 97.8 , Pulse 66 , B/P 117 /73 , Respiratory Rate 18 , O2 SAT 98 , Room Air, O2 Flow Rate . Vital Sign Comment: [] Latest Sales Fall Score: 35 Fall Risk: Medium Risk Safety Measures: Call light Within Reach, Bed Alarm Zone 1, Side Rails Side Rails x2, Bed position Low and Locked. Fall Precautions: Patient Fall Education Report given to [Jazmyne LAMA].
[2020-02-28 08:00] VITALS: BP 117/75
--- NOTE | 2020-02-28 08:06 | NUR ---
NURSE NOTES: patient in bed resting comfortably. eating breakfast, she denied having pain, AOx4 on room air, pupils reactive to light, lungs sound clear bilaterally, abdominal sounds present on all four quadrants. patient has an IV on right hand 24G running D5 NS @ 75cc/hr. patient will be monitored for safety.
[2020-02-28] MEDS: Heparin 5000 units/ml inj SUBQ SCH ×2 (08:26→21:00)
[2020-02-28] MEDS: D5 1/2NS w/KCl 20mEq 1,000 ML IV SCH ×2 (08:27→21:09)
--- NOTE | 2020-02-28 10:42 | Surgery Progress Note ---
Surgery Progress Note Subjective Additional Comments afebrile, HD stable improving tolerating diet hep panel negative pending GEMA Objective Last 24 Hour Vital Signs Date Time Temp Pulse Resp B/P (MAP) Pulse Ox O2 Delivery O2 Flow Rate FiO2 02/28/20 09:00 Room Air 02/28/20 08:00 97.8 69 20 117/75 (89) 98 02/28/20 04:00 97.8 66 18 117/73 (88) 98 02/27/20 21:00 Room Air 02/27/20 19:57 97.6 62 18 132/86 (101) 98 02/27/20 16:00 97.3 70 20 117/81 (93) 98 02/27/20 12:00 98.5 63 19 111/79 (90) 99 I&O Intake and Output 02/27/20 02/28/20 19:00 07:00 Intake Total 1100 ml 1037.5 ml Balance 1100 ml 1037.5 ml Intake Oral 1100 ml IV Total 1037.5 ml # Voids 2 # Bowel Movements 1 Cardiovascular: RSR Respiratory: clear Abdomen: soft, non-tender, present bowel sounds, non-distended Extremities: no edema, no tenderness, no cyanosis Laboratory Tests Test 02/28/20 06:05 White Blood Count 5.2 K/UL (4.8-10.8) Red Blood Count 3.31 M/UL (4.20-5.40) L Hemoglobin 8.9 G/DL (12.0-16.0) L Hematocrit 28.4 % (37.0-47.0) L Mean Corpuscular Volume 86 FL (80-99) Mean Corpuscular Hemoglobin 26.9 PG (27.0-31.0) L Mean Corpuscular Hemoglobin Concent 31.3 G/DL (32.0-36.0) L Red Cell Distribution Width 14.3 % (11.6-14.8) Platelet Count 311 K/UL (150-450) Mean Platelet Volume 4.3 FL (6.5-10.1) L Neutrophils (%) (Auto) 41.2 % (45.0-75.0) L Lymphocytes (%) (Auto) 42.7 % (20.0-45.0) Monocytes (%) (Auto) 8.6 % (1.0-10.0) Eosinophils (%) (Auto) 4.0 % (0.0-3.0) H Basophils (%) (Auto) 3.5 % (0.0-2.0) H Sodium Level 141 MMOL/L (136-145) Potassium Level 3.6 MMOL/L (3.5-5.1) Chloride Level 106 MMOL/L (98-107) Carbon Dioxide Level 28 MMOL/L (21-32) Anion Gap 7 mmol/L (5-15) Blood Urea Nitrogen 6 mg/dL (7-18) L Creatinine 0.8 MG/DL (0.55-1.30) Estimat Glomerular Filtration Rate > 60 mL/min (>60) Glucose Level 93 MG/DL (74-106) Calcium Level 8.3 MG/DL (8.5-10.1) L Total Bilirubin 0.3 MG/DL (0.2-1.0) Aspartate Amino Transf (AST/SGOT) 33 U/L (15-37) Alanine Aminotransferase (ALT/SGPT) 26 U/L (12-78) Alkaline Phosphatase 135 U/L (46-116) H Total Protein 6.0 G/DL (6.4-8.2) L Albumin 2.8 G/DL (3.4-5.0) L Globulin 3.2 g/dL Albumin/Globulin Ratio 0.9 (1.0-2.7) L Plan Problems: (1) Acute pyelonephritis (2) Acute abdominal pain Assessment & Plan: The gallbladder is not visualized, presumably removed as a prior abdominal radiograph demonstrates cholecystectomy clips. There is mild ectasia of the common hepatic duct, which measures up to 9 mm in diameter. The common bile duct is normal in caliber, and there is no evidence of downstream obstructive lesion. Visualization of the intrahepatic ducts is somewhat limited as the dome of the liver is cut off of the exam on the coronal 3-D MRCP images, although intrahepatic ducts are visualized on the radial MRCP images. There is some free intraperitoneal fluid. There is considerable edema of the retroperitoneal fat completely surrounding both kidneys with fluid tracking inferiorly to the kidneys, probably along Gerota's fascia. There is fluid in the pelvis. There is also some edema of the left upper quadrant mesenteric fat. The pancreatic duct is mildly ectatic. The pancreas is equivocally slightly prominent but not frankly edematous. The kidneys are unremarkable in appearance except for a left renal cyst. The liver, spleen, adrenals are unremarkable. No retroperitoneal or mesenteric mass or adenopathy. There is equivocal minimal bladder wall thickening. Impression: Extensive edema, mostly of the retroperitoneal fat but also extending to some extent into the mesenteric root and into the left upper quadrant mesenteric fat. Small amount of associated free intraperitoneal fluid noted as well. Per discussion with referring physician, patient had prior outside CT scan suggesting bilateral pyelonephritis due to the presence of bilateral perinephric fat stranding. Findings could therefore be related to such. Note that no definite intrinsic renal parenchymal abnormality is demonstrated, but evaluation is limited in the absence of IV c ontrast. Note also that fatty infiltration in this extensive is unusual for nephritis, so the possibility of acute pancreatitis should also be considered. No definite intrinsic parenchymal abnormality noted except that the pancreas is equivocally slightly prominent The equivocal very slight wall thickening of the bladder Evidence of prior cholecystectomy. Mild ectasia of the common hepatic duct, likely related to postcholecystectomy state, but no evidence of biliary obstruction. (3) Dysphagia (4) Abdominal pain Assessment & Plan: 54F acute abdominal pain. now improved with hydration, abx, and pain meds abd exam benign. abd soft nt/nd bs+ flank pain discomfort no n/v//f/c labs noted MRI reviewed prior CT no acute surgical intervention cont abx cont fluids okay for diet will follow with recs thank you (5) History of gastric bypass (6) Hx of cholecystectomy (7) Hx of hysterectomy oScrates Hernandez Feb 28, 2020 10:42
--- NOTE | 2020-02-28 11:43 | Pulmonology Progress Note ---
Subjective ROS Limited/Unobtainable: No Constitutional: Reports: no symptoms HEENT: Repors: no symptoms Respiratory: Reports: no symptoms Allergies: Coded Allergies: No Known Allergies (Unverified , 05/14/16) Objective Last 24 Hour Vital Signs Date Time Temp Pulse Resp B/P (MAP) Pulse Ox O2 Delivery O2 Flow Rate FiO2 02/28/20 09:00 Room Air 02/28/20 08:00 97.8 69 20 117/75 (89) 98 02/28/20 04:00 97.8 66 18 117/73 (88) 98 02/27/20 21:00 Room Air 02/27/20 19:57 97.6 62 18 132/86 (101) 98 02/27/20 16:00 97.3 70 20 117/81 (93) 98 02/27/20 12:00 98.5 63 19 111/79 (90) 99 Intake and Output 02/27/20 02/28/20 19:00 07:00 Intake Total 1100 ml 1037.5 ml Balance 1100 ml 1037.5 ml Intake Oral 1100 ml IV Total 1037.5 ml # Voids 2 # Bowel Movements 1 General Appearance: WD/WN HEENT: normocephalic, atraumatic Respiratory: chest wall non-tender, lungs clear, normal breath sounds, no respiratory distress Breasts: no masses Cardiovascular: normal peripheral pulses, normal rate Abdomen: normal bowel sounds, soft, non tender Genitourinary: normal external genitalia Extremities: no cyanosis Skin: no rash 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 Lymphatic: no neck adenopathy Microbiology Date/Time Source Procedure Growth Status 02/27/20 05:30 Blood Blood Culture - Preliminary NO GROWTH AFTER 24 HOURS Resulted 02/27/20 05:14 Blood Blood Culture - Preliminary NO GROWTH AFTER 24 HOURS Resulted 02/26/20 12:30 Urine,Clean Catch Urine Culture - Final NO GROWTH AFTER 48 HOURS Complete Laboratory Tests 02/28/20 06:05: White Blood Count 5.2, Red Blood Count 3.31L, Hemoglobin 8.9L, Hematocrit 28.4L, Mean Corpuscular Volume 86, Mean Corpuscular Hemoglobin 26.9L, Mean Corpuscular Hemoglobin Concent 31.3L, Red Cell Distribution Width 14.3, Platelet Count 311, Mean Platelet Volume 4.3L, Neutrophils (%) (Auto) 41.2L, Lymphocytes (%) (Auto) 42.7, Monocytes (%) (Auto) 8.6, Eosinophils (%) (Auto) 4.0H, Basophils (%) (Auto) 3.5H, Sodium Level 141, Potassium Level 3.6, Chloride Level 106, Carbon Dioxide Level 28, Anion Gap 7, Blood Urea Nitrogen 6L, Creatinine 0.8, Estimat Glomerular Filtration Rate > 60, Glucose Level 93, Calcium Level 8.3L, Total Bilirubin 0.3, Aspartate Amino Transf (AST/SGOT) 33, Alanine Aminotransferase (ALT/SGPT) 26, Alkaline Phosphatase 135H, Total Protein 6.0L, Albumin 2.8L, Globulin 3.2, Albumin/Globulin Ratio 0.9L Current Medications Medications (Trade) Dose Ordered Sig/Veronica Route PRN Reason Start Time Stop Time Status Last Admin Dose Admin Acetaminophen (Tylenol) 650 mg Q6H PRN ORAL Temp >100.5 02/26/20 01:45 03/27/20 01:44 Acetaminophen/ Hydrocodone Bitart ([place] 5/325) 2 tab Q6H PRN ORAL Moderate Pain (Pain Scale 4-6) 02/26/20 01:45 03/04/20 01:44 02/27/20 09:18 Dextrose/ Electrolytes 1,000 ml @ 75 mls/hr [id number] IV 02/26/20 02:30 03/27/20 02:29 02/28/20 08:27 Heparin Sodium (Porcine) (Heparin 5000 units/ml) 5,000 units EVERY 12 HOURS SUBQ 02/26/20 11:15 04/11/20 11:14 02/28/20 08:26 Morphine Sulfate (Morphine Sulfate) 2 mg Q4H PRN IVP Severe Pain (Pain Scale 7-10) 02/26/20 01:30 03/04/20 01:29 02/27/20 20:24 Ondansetron HCl (Zofran) 4 mg Q6H PRN IVP Nausea & Vomiting 02/26/20 01:30 03/27/20 01:29 02/27/20 10:10 Piperacillin Sod/ Tazobactam Sod 3.375 gm/Sodium Chloride 110 ml @ 27.5 mls/hr EVERY 8 HOURS IVPB 02/26/20 14:00 03/02/20 13:59 02/28/20 05:12 Zolpidem Tartrate (Ambien) 5 mg HSPRN PRN ORAL Insomnia 02/26/20 19:30 03/04/20 19:29 02/27/20 22:01 Assessment/Plan Problems: (1) Acute abdominal pain (2) Acute pyelonephritis (3) Hx of hysterectomy (4) Hx of cholecystectomy (5) History of gastric bypass Assessment/Plan eating well alonso culture, urine is negative IV abx on Zosyn empirically GI and ID recommendations appreciated check urine cultures symptomatic treatment dvt prophylaxis. Harriet Gilmore MD Feb 28, 2020 11:43
[2020-02-28 12:00] VITALS: BP 123/85
[2020-02-28] MEDS: Morphine Sulfate 2mg/ml Inj(IV/IM USE ONLY) IVP PRN ×2 (12:19→20:59)
--- NOTE | 2020-02-28 13:54 | NUR ---
CASE MANAGEMENT:REVIEW SI;PYELONEPHRITIS 97.8 69 20 123/85 98% ON RA H/H 8.9/28.4 IS;ZOSYN IV Q8 HEPARIN SUBQ Q12 IVF D5W @ 75 ML/HR MED SURG STATUS DCP;PATIENT IS FROM HOME
--- NOTE | 2020-02-28 14:27 | Infectious Diseases Prog Note ---
Assessment/Plan Assessment: COVID19 neg x1 (02/24 SARS-COV2 PCR neg) Afebrile No leukocytosis Abdominal pain- unclear etiology- there is stranding and retroperitoneal infiltration but normal u/a, no abnormal kidney enhacement. no obvious pathology on imaging- r/o infectious vs inflammatory- r/o small vessel vasculitis (has a single petechial lesion on L wrist and hx of pethechial lession on L foot) -02/26 Bcx NTD -02/25 u/a neg; ucx Neg amylase, lipase normal -02/25 Abdomen MRI: Extensive edema, mostly of the retroperitoneal fat but also extending to some extent into the mesenteric root and into the left upper quadrant mesenteric fat. Small amount of associated free intraperitoneal fluid noted as well. Per discussion with referring physician, patient had prior outside CT scan suggesting bilateral pyelonephritis due to the presence of bilateral perinephric fat stranding. Findings could therefore be related to such. Note that no definite intrinsic renal parenchymal abnormality is demonstrated, but evaluation is limited in the absence of IV contrast. Note also that fatty infiltration in this extensive is unusual for nephritis, so the possibility of acute pancreatitis should also be considered. No definite intrinsic parenchymal abnormality noted except that the pancreas is equivocally slightly prominent. T he equivocal very slight wall thickening of the bladder Evidence of prior cholecystectomy. Mild ectasia of the common hepatic duct, likely related to postcholecystectomy state, but no evidence of biliary obstruction. -02/24 CT abd/p wo (at OSH): Stranding surrounding both kidneys with fluid density extending into the paracolic gutters bilaterally. Underlying pyelonephritis cannot be excluded due to non IV Contrast. Starnding also seen surrouding the posterior aspect of the pancreas which may be secondary to inflammatory changes surrounding the kidneys. CTA thoracic, abd and pelvic aorta: No aneurysms or dissection. Abnormal retroperitoneal infiltration with fat stranding and infiltration of the retroperitoneal fat, seen in the mediastinum as well as surrounding both kidneys, aorta and IVC and extending inferiorly into the presacral space of the pelvis. A source of inflammation is not evident on this exam. Normal renal enhancement, no findings which would suggest pyelonephritis. -02/24 US transvaginal (at OSH): Post hysterectomy, ovaries not visualized u/a neg nit, leuk est neg lipase, lactic acid normal ESR 21, CRP <0.2 -RF, GEMA, dsDNA ab neg Mild ASt elevation, SP -HIV ag/ag neg, acute hep panel neg sp cholecystectomy 1999 sp gastric bypass 2000 sp hysterectomy 2007 Plan: -Continue empiric Zosyn #3/3-5 -upon discharge can dc antibiotics -f/u cx -Monitor CBC/CMP, temperatures -f/u vasculitis and autoimmune work up -GI f/u Thank you for this consultation. Will continue to follow along with you. Discussed with RN. Subjective Allergies: Coded Allergies: No Known Allergies (Unverified , 05/14/16) afebrile at RA ucx neg Objective Last 24 Hour Vital Signs Date Time Temp Pulse Resp B/P (MAP) Pulse Ox O2 Delivery O2 Flow Rate FiO2 02/28/20 12:00 97.9 64 20 123/85 (98) 98 02/28/20 09:00 Room Air 02/28/20 08:00 97.8 69 20 117/75 (89) 98 02/28/20 04:00 97.8 66 18 117/73 (88) 98 02/27/20 21:00 Room Air 02/27/20 19:57 97.6 62 18 132/86 (101) 98 02/27/20 16:00 97.3 70 20 117/81 (93) 98 Height (Feet): 5 Height (Inches): 2.00 Weight (Pounds): 174 General Appearance: WD/WN HEENT: normocephalic, atraumatic Neck: non-tender, supple Respiratory/Chest: chest wall non-tender, lungs clear Cardiovascular/Chest: normal peripheral pulses, normal rate Abdomen: normal bowel sounds, non tender Extremities: normal range of motion, non-tender Microbiology Date/Time Source Procedure Growth Status 02/27/20 05:30 Blood Blood Culture - Preliminary NO GROWTH AFTER 24 HOURS Resulted 02/27/20 05:14 Blood Blood Culture - Preliminary NO GROWTH AFTER 24 HOURS Resulted 02/26/20 12:30 Urine,Clean Catch Urine Culture - Final NO GROWTH AFTER 48 HOURS Complete Laboratory Tests Test 02/28/20 06:05 White Blood Count 5.2 K/UL (4.8-10.8) Red Blood Count 3.31 M/UL (4.20-5.40) L Hemoglobin 8.9 G/DL (12.0-16.0) L Hematocrit 28.4 % (37.0-47.0) L Mean Corpuscular Volume 86 FL (80-99) Mean Corpuscular Hemoglobin 26.9 PG (27.0-31.0) L Mean Corpuscular Hemoglobin Concent 31.3 G/DL (32.0-36.0) L Red Cell Distribution Width 14.3 % (11.6-14.8) Platelet Count 311 K/UL (150-450) Mean Platelet Volume 4.3 FL (6.5-10.1) L Neutrophils (%) (Auto) 41.2 % (45.0-75.0) L Lymphocytes (%) (Auto) 42.7 % (20.0-45.0) Monocytes (%) (Auto) 8.6 % (1.0-10.0) Eosinophils (%) (Auto) 4.0 % (0.0-3.0) H Basophils (%) (Auto) 3.5 % (0.0-2.0) H Sodium Level 141 MMOL/L (136-145) Potassium Level 3.6 MMOL/L (3.5-5.1) Chloride Level 106 MMOL/L (98-107) Carbon Dioxide Level 28 MMOL/L (21-32) Anion Gap 7 mmol/L (5-15) Blood Urea Nitrogen 6 mg/dL (7-18) L Creatinine 0.8 MG/DL (0.55-1.30) Estimat Glomerular Filtration Rate > 60 mL/min (>60) Glucose Level 93 MG/DL (74-106) Calcium Level 8.3 MG/DL (8.5-10.1) L Total Bilirubin 0.3 MG/DL (0.2-1.0) Aspartate Amino Transf (AST/SGOT) 33 U/L (15-37) Alanine Aminotransferase (ALT/SGPT) 26 U/L (12-78) Alkaline Phosphatase 135 U/L (46-116) H Total Protein 6.0 G/DL (6.4-8.2) L Albumin 2.8 G/DL (3.4-5.0) L Globulin 3.2 g/dL Albumin/Globulin Ratio 0.9 (1.0-2.7) L Current Medications Medications (Trade) Dose Ordered Sig/Veronica Route PRN Reason Start Time Stop Time Status Last Admin Dose Admin Acetaminophen (Tylenol) 650 mg Q6H PRN ORAL Temp >100.5 02/26/20 01:45 03/27/20 01:44 Acetaminophen/ Hydrocodone Bitart ([place] 5/325) 2 tab Q6H PRN ORAL Moderate Pain (Pain Scale 4-6) 02/26/20 01:45 03/04/20 01:44 02/27/20 09:18 Dextrose/ Electrolytes 1,000 ml @ 75 mls/hr [id number] IV 02/26/20 02:30 03/27/20 02:29 02/28/20 08:27 Heparin Sodium (Porcine) (Heparin 5000 units/ml) 5,000 units EVERY 12 HOURS SUBQ 02/26/20 11:15 04/11/20 11:14 02/28/20 08:26 Morphine Sulfate (Morphine Sulfate) 2 mg Q4H PRN IVP Severe Pain (Pain Scale 7-10) 02/26/20 01:30 03/04/20 01:29 02/28/20 12:19 Ondansetron HCl (Zofran) 4 mg Q6H PRN IVP Nausea & Vomiting 02/26/20 01:30 03/27/20 01:29 02/28/20 12:19 Piperacillin Sod/ Tazobactam Sod 3.375 gm/Sodium Chloride 110 ml @ 27.5 mls/hr EVERY 8 HOURS IVPB 02/26/20 14:00 03/02/20 13:59 02/28/20 13:58 Zolpidem Tartrate (Ambien) 5 mg HSPRN PRN ORAL Insomnia 02/26/20 19:30 03/04/20 19:29 02/27/20 22:01 Cindi Bullard M.D. Feb 28, 2020 14:27
--- NOTE | 2020-02-28 15:58 | Internal Med Progress Note ---
Subjective Physician Name Sven Dalton Attending Physician Sven Dalton MD Current Medications Medications (Trade) Dose Ordered Sig/Veronica Route PRN Reason Start Time Stop Time Status Last Admin Dose Admin Acetaminophen (Tylenol) 650 mg Q6H PRN ORAL Temp >100.5 02/26/20 01:45 03/27/20 01:44 Acetaminophen/ Hydrocodone Bitart ([place] 5/325) 2 tab Q6H PRN ORAL Moderate Pain (Pain Scale 4-6) 02/26/20 01:45 03/04/20 01:44 02/27/20 09:18 Dextrose/ Electrolytes 1,000 ml @ 75 mls/hr [id number] IV 02/26/20 02:30 03/27/20 02:29 02/28/20 08:27 Heparin Sodium (Porcine) (Heparin 5000 units/ml) 5,000 units EVERY 12 HOURS SUBQ 02/26/20 11:15 04/11/20 11:14 02/28/20 08:26 Morphine Sulfate (Morphine Sulfate) 2 mg Q4H PRN IVP Severe Pain (Pain Scale 7-10) 02/26/20 01:30 03/04/20 01:29 02/28/20 12:19 Ondansetron HCl (Zofran) 4 mg Q6H PRN IVP Nausea & Vomiting 02/26/20 01:30 03/27/20 01:29 02/28/20 12:19 Piperacillin Sod/ Tazobactam Sod 3.375 gm/Sodium Chloride 110 ml @ 27.5 mls/hr EVERY 8 HOURS IVPB 02/26/20 14:00 03/02/20 13:59 02/28/20 13:58 Zolpidem Tartrate (Ambien) 5 mg HSPRN PRN ORAL Insomnia 02/26/20 19:30 03/04/20 19:29 02/27/20 22:01 Allergies: Coded Allergies: No Known Allergies (Unverified , 05/14/16) Subjective awake, alert, responsive, feeling better, able to tolerate oral intake, d ecreased abdominal pain, WBC 5.2. Objective Last Vital Signs Date Time Temp Pulse Resp B/P (MAP) Pulse Ox O2 Delivery O2 Flow Rate FiO2 02/28/20 12:00 97.9 64 20 123/85 (98) 98 02/28/20 09:00 Room Air Laboratory Tests Test 02/28/20 06:05 White Blood Count 5.2 K/UL (4.8-10.8) Red Blood Count 3.31 M/UL (4.20-5.40) L Hemoglobin 8.9 G/DL (12.0-16.0) L Hematocrit 28.4 % (37.0-47.0) L Mean Corpuscular Volume 86 FL (80-99) Mean Corpuscular Hemoglobin 26.9 PG (27.0-31.0) L Mean Corpuscular Hemoglobin Concent 31.3 G/DL (32.0-36.0) L Red Cell Distribution Width 14.3 % (11.6-14.8) Platelet Count 311 K/UL (150-450) Mean Platelet Volume 4.3 FL (6.5-10.1) L Neutrophils (%) (Auto) 41.2 % (45.0-75.0) L Lymphocytes (%) (Auto) 42.7 % (20.0-45.0) Monocytes (%) (Auto) 8.6 % (1.0-10.0) Eosinophils (%) (Auto) 4.0 % (0.0-3.0) H Basophils (%) (Auto) 3.5 % (0.0-2.0) H Sodium Level 141 MMOL/L (136-145) Potassium Level 3.6 MMOL/L (3.5-5.1) Chloride Level 106 MMOL/L (98-107) Carbon Dioxide Level 28 MMOL/L (21-32) Anion Gap 7 mmol/L (5-15) Blood Urea Nitrogen 6 mg/dL (7-18) L Creatinine 0.8 MG/DL (0.55-1.30) Estimat Glomerular Filtration Rate > 60 mL/min (>60) Glucose Level 93 MG/DL (74-106) Calcium Level 8.3 MG/DL (8.5-10.1) L Total Bilirubin 0.3 MG/DL (0.2-1.0) Aspartate Amino Transf (AST/SGOT) 33 U/L (15-37) Alanine Aminotransferase (ALT/SGPT) 26 U/L (12-78) Alkaline Phosphatase 135 U/L (46-116) H Total Protein 6.0 G/DL (6.4-8.2) L Albumin 2.8 G/DL (3.4-5.0) L Globulin 3.2 g/dL Albumin/Globulin Ratio 0.9 (1.0-2.7) L Microbiology Date/Time Source Procedure Growth Status 02/27/20 05:30 Blood Blood Culture - Preliminary NO GROWTH AFTER 24 HOURS Resulted 02/27/20 05:14 Blood Blood Culture - Preliminary NO GROWTH AFTER 24 HOURS Resulted 02/26/20 12:30 Urine,Clean Catch Urine Culture - Final NO GROWTH AFTER 48 HOURS Complete Intake and Output 02/27/20 02/28/20 19:00 07:00 Intake Total 1100 ml 1037.5 ml Balance 1100 ml 1037.5 ml Intake Oral 1100 ml IV Total 1037.5 ml # Voids 2 # Bowel Movements 1 Objective General: No acute distress, awake and alert HEENT: NCAT, sclera anicteric, PERRL, EOMI. Neck: Supple, no significant jugular venous distention, Lungs: Good inspiratory effort, clear to auscultation bilaterally, no Wheeze or Rales. Heart: Regular rate and rhythm, normal S1/S2, no murmurs/gallops Abdomen: soft, nontender, nondistended. Normoactive bowel sounds. / Rectal: Refused and deferred. Extremities: No Cyanosis , clubbing or edema. Neuro: A&O x 3, Able to move all extremities Skin: warm, no rashes or lesions Psych: Normal mood and affect Assessment/Plan Assessment/Plan ASSESSMENT: This is a 54-year-old female. 1. Abdominal pain etiology unknown 2. Nausea without vomiting. 3. Right flank pain possible pyelonephritis 4. with obesity status post of gastric bypass. TREATMENT: Abdominal pain/nausea. A Gastroenterology consultation has been obtained with Dr. Alvin Lopez. Differential includes right renal calculus versus pyelonephritis. The Abx: Zosyn. discussed with the patient extensively with regard to the plan of care and discharge planning. CODE STATUS: Full code DVT prophylaxis: Heparin subcu. Consider to repeat CT scan of the abdomen in 1-2 weeks. Sven Dalton MD Feb 28, 2020 15:58
[2020-02-28 16:00] VITALS: BP 125/77
--- NOTE | 2020-02-28 19:39 | NUR ---
NURSE HAND-OFF: Important Events on Shift: IV ATB and fluid Patient Status: stable Diet: regular Pending Orders: n/a Pending Results/Labs:n/a Pending MD notification:n/a Latest Vital Signs: Temperature 98.1 , Pulse 66 , B/P 125 /77 , Respiratory Rate 20 , O2 SAT 98 , Room Air, O2 Flow Rate . Vital Sign Comment: stable Latest Sales Fall Score: 35 Fall Risk: Medium Risk Safety Measures: Call light Within Reach, Bed Alarm Zone 1, Side Rails Side Rails x2, Bed position Low and Locked. Fall Precautions: Patient Fall Education Report given to DAINA Black.
--- NOTE | 2020-02-28 19:41 | NUR ---
NURSE NOTES: Received patient in no apparent distress. A&OX4. IV site patent and intact. Bed in lowest position. Call light within reach. Will continue to monitor.
[2020-02-28 20:00] VITALS: BP 134/95
[2020-02-28] MEDS: Zolpidem 5mg tab ORAL PRN (20:58)
--- NOTE | 2020-02-28 21:49 | General Progress Note ---
Subjective Allergies: Coded Allergies: No Known Allergies (Unverified , 05/14/16) Subjective feels better tolerating PO MRI reviewed Objective Last 24 Hour Vital Signs Date Time Temp Pulse Resp B/P (MAP) Pulse Ox O2 Delivery O2 Flow Rate FiO2 02/28/20 20:00 97.9 61 19 134/95 (108) 98 02/28/20 16:00 98.1 66 20 125/77 (93) 98 02/28/20 12:00 97.9 64 20 123/85 (98) 98 02/28/20 09:00 Room Air 02/28/20 08:00 97.8 69 20 117/75 (89) 98 02/28/20 04:00 97.8 66 18 117/73 (88) 98 Intake and Output 02/27/20 02/28/20 19:00 07:00 Intake Total 1100 ml 1037.5 ml Balance 1100 ml 1037.5 ml Intake Oral 1100 ml IV Total 1037.5 ml # Voids 2 # Bowel Movements 1 Laboratory Tests 02/28/20 06:05: White Blood Count 5.2, Red Blood Count 3.31L, Hemoglobin 8.9L, Hematocrit 28.4L, Mean Corpuscular Volume 86, Mean Corpuscular Hemoglobin 26.9L, Mean Corpuscular Hemoglobin Concent 31.3L, Red Cell Distribution Width 14.3, Platelet Count 311, Mean Platelet Volume 4.3L, Neutrophils (%) (Auto) 41.2L, Lymphocytes (%) (Auto) 42.7, Monocytes (%) (Auto) 8.6, Eosinophils (%) (Auto) 4.0H, Basophils (%) (Auto) 3.5H, Sodium Level 141, Potassium Level 3.6, Chloride Level 106, Carbon Dioxide Level 28, Anion Gap 7, Blood Urea Nitrogen 6L, Creatinine 0.8, Estimat Glomerular Filtration Rate > 60, Glucose Level 93, Calcium Level 8.3L, Total Bilirubin 0.3, Aspartate Amino Transf (AST/SGOT) 33, Alanine Aminotransferase (ALT/SGPT) 26, Alkaline Phosphatase 135H, Total Protein 6.0L, Albumin 2.8L, Globulin 3.2, Albumin/Globulin Ratio 0.9L Height (Feet): 5 Height (Inches): 2.00 Weight (Pounds): 174 Objective WDWN NCAT supple CTA RRR Abd soft no edema Assessment/Plan Assessment/Plan: Assessment - pelvic pain and initial perinephric stranding on outside CT - suspected renal d/o - but normal UA noted - now retroperitoneal and mesenteric inflammation on MRI --> ? sclerosing mesenteritis - CEA negative - GEMA and DS DNA negative - Anemia - now stable - OB (-) - Fe panel normal - Likely a response to primary inflammatory disorder - abnormal LFT, improving - negative MRI for biliary obstruction - negative hepatitis serologies - Likely a response to primary inflammatory disorder Recommendation - follow symptoms - po as tolerated - continue sq heparin - check ESR / CRP - conservative management at this point, since improving - outpatient EGD/colon Alvin Lopez MD Feb 28, 2020 21:49
[2020-02-29] VITALS: BP 112/68
[2020-02-29 04:00] VITALS: BP 123/94
[2020-02-29] MEDS: Piperacillin/Tazobactam 3.375 GM in NS 110 ML IVPB SCH ×3 (05:07→21:43)
--- NOTE | 2020-02-29 07:31 | NUR ---
NURSE HAND-OFF: Important Events on Shift: Patient Status: stable Diet: Regular Pending Orders: Pending Results/Labs: Pending MD notification: Latest Vital Signs: Temperature 97.3 , Pulse 61 , B/P 123 /94 , Respiratory Rate 19 , O2 SAT 98 , Room Air, O2 Flow Rate . Vital Sign Comment: Latest Sales Fall Score: 35 Fall Risk: Medium Risk Safety Measures: Call light Within Reach, Bed Alarm Zone 1, Side Rails Side Rails x2, Bed position Low and Locked. Fall Precautions: Patient Fall Education Report given to Philomena LAMA.
[2020-02-29 08:00] VITALS: BP 127/83
--- NOTE | 2020-02-29 08:18 | NUR ---
NURSE NOTES: Patient alert x4; on room air, no sing of distress and shortness of breath; no sing of chest pain; IV Right-hand fluid running; patient ambulatory; side rails up x2, breaks engaged, bed at lowest position, call light within reach; will keep monitoring.
--- NOTE | 2020-02-29 08:21 | Pulmonology Progress Note ---
Subjective ROS Limited/Unobtainable: No Allergies: Coded Allergies: No Known Allergies (Unverified , 05/14/16) Subjective still with abd pain, but much better able to tolerate diet Objective Last 24 Hour Vital Signs Date Time Temp Pulse Resp B/P (MAP) Pulse Ox O2 Delivery O2 Flow Rate FiO2 02/29/20 04:00 97.3 61 19 123/94 (104) 98 02/29/20 00:00 97.7 63 19 112/68 (83) 98 02/28/20 21:00 Room Air 02/28/20 20:00 97.9 61 19 134/95 (108) 98 02/28/20 16:00 98.1 66 20 125/77 (93) 98 02/28/20 12:00 97.9 64 20 123/85 (98) 98 02/28/20 09:00 Room Air Intake and Output 02/28/20 02/29/20 19:00 07:00 Intake Total 1820.0 ml 1762.5 ml Balance 1820.0 ml 1762.5 ml Intake Oral 960 ml 800 ml IV Total 860.0 ml 962.5 ml # Voids 5 5 # Bowel Movements 1 General Appearance: WD/WN HEENT: normocephalic, atraumatic Respiratory: chest wall non-tender, lungs clear, normal breath sounds, no respiratory distress Breasts: no masses Cardiovascular: normal peripheral pulses, normal rate Abdomen: normal bowel sounds, soft, non tender Genitourinary: normal external genitalia Extremities: no cyanosis Skin: no rash 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 normal Lymphatic: no neck adenopathy Microbiology Date/Time Source Procedure Growth Status 02/27/20 05:30 Blood Blood Culture - Preliminary NO GROWTH AFTER 24 HOURS Resulted 02/27/20 05:14 Blood Blood Culture - Preliminary NO GROWTH AFTER 24 HOURS Resulted 02/26/20 12:30 Urine,Clean Catch Urine Culture - Final NO GROWTH AFTER 48 HOURS Complete Current Medications Medications (Trade) Dose Ordered Sig/Veronica Route PRN Reason Start Time Stop Time Status Last Admin Dose Admin Acetaminophen (Tylenol) 650 mg Q6H PRN ORAL Temp >100.5 02/26/20 01:45 03/27/20 01:44 Acetaminophen/ Hydrocodone Bitart ([place] 5/325) 2 tab Q6H PRN ORAL Moderate Pain (Pain Scale 4-6) 02/26/20 01:45 03/04/20 01:44 02/27/20 09:18 Dextrose/ Electrolytes 1,000 ml @ 75 mls/hr [id number] IV 02/26/20 02:30 03/27/20 02:29 02/28/20 21:09 Heparin Sodium (Porcine) (Heparin 5000 units/ml) 5,000 units EVERY 12 HOURS SUBQ 02/26/20 11:15 04/11/20 11:14 02/28/20 21:00 Morphine Sulfate (Morphine Sulfate) 2 mg Q4H PRN IVP Severe Pain (Pain Scale 7-10) 02/26/20 01:30 03/04/20 01:29 02/28/20 20:59 Ondansetron HCl (Zofran) 4 mg Q6H PRN IVP Nausea & Vomiting 02/26/20 01:30 03/27/20 01:29 02/28/20 21:09 Piperacillin Sod/ Tazobactam Sod 3.375 gm/Sodium Chloride 110 ml @ 27.5 mls/hr EVERY 8 HOURS IVPB 02/26/20 14:00 03/02/20 13:59 02/29/20 05:07 Zolpidem Tartrate (Ambien) 5 mg HSPRN PRN ORAL Insomnia 02/26/20 19:30 03/04/20 19:29 02/28/20 20:58 Assessment/Plan Assessment/Plan ASSESSMENT abdominal pain Perinephric stranding Possible passed stone Anemia Story of gastric bypass History of cholecystectomy History of hysterectomy PLAN OF CARE MS floor all imaging noted empiric abx/ Zosyn - as per ID, IV fluids UA, UCX, BCX urine all negative RF, GEMA, dsDNA AB NGT HIV and hepatitis panel NGT DVT prophylaxis pain management antiemetic as needed monitor H&H with goal to keep Hgb above 7 stool OB NGT GI follows , recommended outpatient GI procedure, ? possible passed stone as per GI case discussed and evaluated by supervising physician Sri Boland NP Feb 29, 2020 08:21
[2020-02-29] MEDS: Heparin 5000 units/ml inj SUBQ SCH ×2 (09:18→20:30)
[2020-02-29 09:53] LABS: BASOPHILS % (AUTO) 1.8 % (0.0-2.0); EOSINOPHILS % (AUTO) 2.6 % (0.0-3.0); HEMATOCRIT 29.3 % (37.0-47.0); HEMOGLOBIN 9.3 G/DL (12.0-16.0); MEAN CORPUSCULAR VOLUME 86 FL (80-99); MONOCYTES % (AUTO) 9.5 % (1.0-10.0); NEUTROPHILS % (AUTO) 58.1 % (45.0-75.0); PLATELET COUNT 334 K/UL (150-450); RED BLOOD COUNT 3.43 M/UL (4.20-5.40)
[2020-02-29 10:08] LABS: ALANINE AMINOTRANSFERASE 24 U/L (12-78); ALBUMIN 2.9 G/DL (3.4-5.0); ALBUMIN/GLOBULIN RATIO 0.9 (1.0-2.7); ALKALINE PHOSPHATASE 141 U/L (46-116); ANION GAP 2 mmol/L (5-15); ASPARTATE AMINO TRANSFERASE 36 U/L (15-37); BILIRUBIN,TOTAL 0.3 MG/DL (0.2-1.0); BLOOD UREA NITROGEN 5 mg/dL (7-18); CALCIUM 8.2 MG/DL (8.5-10.1); CARBON DIOXIDE 30 MMOL/L (21-32); CHLORIDE 107 MMOL/L (98-107); POTASSIUM 3.8 MMOL/L (3.5-5.1); SODIUM 139 MMOL/L (136-145)
[2020-02-29 12:00] VITALS: BP 124/84
--- NOTE | 2020-02-29 12:18 | Surgery Progress Note ---
Surgery Progress Note Subjective Symptoms: improved, tolerating diet, voiding well, passing flatus, BM, pain decreased Additional Comments has [facility] from outside. is going to give it a try no n/v/fc comfortable labs noted Objective Last 24 Hour Vital Signs Date Time Temp Pulse Resp B/P (MAP) Pulse Ox O2 Delivery O2 Flow Rate FiO2 02/29/20 09:00 Room Air 02/29/20 08:00 97.7 79 20 127/83 (98) 98 02/29/20 04:00 97.3 61 19 123/94 (104) 98 02/29/20 00:00 97.7 63 19 112/68 (83) 98 02/28/20 21:00 Room Air 02/28/20 20:00 97.9 61 19 134/95 (108) 98 02/28/20 16:00 98.1 66 20 125/77 (93) 98 I&O Intake and Output 02/28/20 02/29/20 19:00 07:00 Intake Total 1820.0 ml 1762.5 ml Balance 1820.0 ml 1762.5 ml Intake Oral 960 ml 800 ml IV Total 860.0 ml 962.5 ml # Voids 5 5 # Bowel Movements 1 Cardiovascular: RSR Respiratory: clear Abdomen: soft, non-tender, present bowel sounds, non-distended Extremities: no edema, no tenderness, no cyanosis Laboratory Tests Test 02/29/20 09:30 White Blood Count 5.0 K/UL (4.8-10.8) Red Blood Count 3.43 M/UL (4.20-5.40) L Hemoglobin 9.3 G/DL (12.0-16.0) L Hematocrit 29.3 % (37.0-47.0) L Mean Corpuscular Volume 86 FL (80-99) Mean Corpuscular Hemoglobin 27.1 PG (27.0-31.0) Mean Corpuscular Hemoglobin Concent 31.7 G/DL (32.0-36.0) L Red Cell Distribution Width 14.0 % (11.6-14.8) Platelet Count 334 K/UL (150-450) Mean Platelet Volume 4.7 FL (6.5-10.1) L Neutrophils (%) (Auto) 58.1 % (45.0-75.0) Lymphocytes (%) (Auto) 28.0 % (20.0-45.0) Monocytes (%) (Auto) 9.5 % (1.0-10.0) Eosinophils (%) (Auto) 2.6 % (0.0-3.0) Basophils (%) (Auto) 1.8 % (0.0-2.0) Erythrocyte Sedimentation Rate 30 MM/HR (0-30) Sodium Level 139 MMOL/L (136-145) Potassium Level 3.8 MMOL/L (3.5-5.1) Chloride Level 107 MMOL/L (98-107) Carbon Dioxide Level 30 MMOL/L (21-32) Anion Gap 2 mmol/L (5-15) L Blood Urea Nitrogen 5 mg/dL (7-18) L Creatinine 1.0 MG/DL (0.55-1.30) Estimat Glomerular Filtration Rate > 60 mL/min (>60) Glucose Level 81 MG/DL (74-106) Calcium Level 8.2 MG/DL (8.5-10.1) L Total Bilirubin 0.3 MG/DL (0.2-1.0) Aspartate Amino Transf (AST/SGOT) 36 U/L (15-37) Alanine Aminotransferase (ALT/SGPT) 24 U/L (12-78) Alkaline Phosphatase 141 U/L (46-116) H C-Reactive Protein, Quantitative < 0.4 mg/dL (0.00-0.90) Total Protein 6.0 G/DL (6.4-8.2) L Albumin 2.9 G/DL (3.4-5.0) L Globulin 3.1 g/dL Albumin/Globulin Ratio 0.9 (1.0-2.7) L Plan Problems: (1) Acute pyelonephritis (2) Acute abdominal pain Assessment & Plan: The gallbladder is not visualized, presumably removed as a prior abdominal radiograph demonstrates cholecystectomy clips. There is mild ectasia of the common hepatic duct, which measures up to 9 mm in diameter. The common bile duct is nor mal in caliber, and there is no evidence of downstream obstructive lesion. Visualization of the intrahepatic ducts is somewhat limited as the dome of the liver is cut off of the exam on the coronal 3-D MRCP images, although intrahepatic ducts are visualized on the radial MRCP images. There is some free intraperitoneal fluid. There is considerable edema of the retroperitoneal fat completely surrounding both kidneys with fluid tracking inferiorly to the kidneys, probably along Gerota's fascia. There is fluid in the pelvis. There is also some edema of the left upper quadrant mesenteric fat. The pancreatic duct is mildly ectatic. The pancreas is equivocally slightly prominent but not frankly edematous. The kidneys are unremarkable in appearance except for a left renal cyst. The liver, spleen, adrenals are unremarkable. No retroperitoneal or mesenteric mass or adenopathy. There is equivocal minimal bladder wall thickening. Impression: Extensive edema, mostly of the retroperitoneal fat but also extending to some extent into the mesenteric root and into the left upper quadrant mesenteric fat. Small amount of associated free intraperitoneal fluid noted as well. Per discussion with referring physician, patient had prior outside CT scan suggesting bilateral pyelonephritis due to the presence of bilateral perinephric fat stranding. Findings could therefore be related to such. Note that no definite intrinsic renal parenchymal abnormality is demonstrated, but evaluation is limited in the absence of IV contrast. Note also that fatty infiltration in this extensive is unusual for nephritis, so the possibility of acute pancreatitis should also be considered. No definite intrinsic parenchymal abnormality noted except that the pancreas is equivocally slightly prominent The equivocal very slight wall thickening of the bladder Evidence of prior cholecystectomy. Mild ectasia of the common hepatic duct, likely related to postcholecystectomy state, but no evidence of biliary obstruction. (3) Dysphagia (4) Abdominal pain Assessment & Plan: 54F acute abdominal pain. now improved with hydration, abx, and pain meds abd exam benign. abd soft nt/nd bs+ flank pain discomfort no n/v//f/c labs noted MRI reviewed prior CT no acute surgical intervention cont abx cont fluids okay for diet MRI noted discussed with GI cont abx will follow with recs thank you (5) History of gastric bypass (6) Hx of cholecystectomy (7) Hx of hysterectomy Socrates Hernandez Feb 29, 2020 12:18
[2020-02-29] MEDS: D5 1/2NS w/KCl 20mEq 1,000 ML IV SCH ×2 (13:05→23:55)
[2020-02-29] MEDS: Morphine Sulfate 2mg/ml Inj(IV/IM USE ONLY) IVP PRN ×2 (13:07→20:29)
[2020-02-29 16:00] VITALS: BP 130/87
--- NOTE | 2020-02-29 16:27 | Infectious Diseases Prog Note ---
Assessment/Plan Assessment: COVID19 neg x1 (02/24 SARS-COV2 PCR neg) Afebrile No leukocytosis Abdominal pain- unclear etiology- there is stranding and retroperitoneal infiltration but normal u/a, no abnormal kidney enhacement. no obvious pathology on imaging- r/o infectious vs inflammatory- r/o small vessel vasculitis (has a single petechial lesion on L wrist and hx of pethechial lession on L foot) -02/26 Bcx NTD -02/25 u/a neg; ucx Neg amylase, lipase normal -02/25 Abdomen MRI: Extensive edema, mostly of the retroperitoneal fat but also extending to some extent into the mesenteric root and into the left upper quadrant mesenteric fat. Small amount of associated free intraperitoneal fluid noted as well. Per discussion with referring physician, patient had prior outside CT scan suggesting bilateral pyelonephritis due to the presence of bilateral perinephric fat stranding. Findings could therefore be related to such. Note that no definite intrinsic renal parenchymal abnormality is demonstrated, but evaluation is limited in the absence of IV contrast. Note also that fatty infiltration in this extensive is unusual for nephritis, so the possibility of acute pancreatitis should also be considered. No definite intrinsic parenchymal abnormality noted except that the pancreas is equivocally slightly prominent. T he equivocal very slight wall thickening of the bladder Evidence of prior cholecystectomy. Mild ectasia of the common hepatic duct, likely related to postcholecystectomy state, but no evidence of biliary obstruction. -02/24 CT abd/p wo (at OSH): Stranding surrounding both kidneys with fluid density extending into the paracolic gutters bilaterally. Underlying pyelonephritis cannot be excluded due to non IV Contrast. Starnding also seen surrouding the posterior aspect of the pancreas which may be secondary to inflammatory changes surrounding the kidneys. CTA thoracic, abd and pelvic aorta: No aneurysms or dissection. Abnormal retroperitoneal infiltration with fat stranding and infiltration of the retroperitoneal fat, seen in the mediastinum as well as surrounding both kidneys, aorta and IVC and extending inferiorly into the presacral space of the pelvis. A source of inflammation is not evident on this exam. Normal renal enhancement, no findings which would suggest pyelonephritis. -02/24 US transvaginal (at OSH): Post hysterectomy, ovaries not visualized u/a neg nit, leuk est neg lipase, lactic acid normal ESR 21, CRP <0.2 -RF, GEMA, dsDNA ab, RPR neg Mild ASt elevation, SP -HIV ag/ag neg, acute hep panel neg sp cholecystectomy 1999 sp gastric bypass 2000 sp hysterectomy 2007 Plan: -Continue empiric Zosyn #4/3-5 -upon discharge can dc antibiotics -f/u cx -Monitor CBC/CMP, temperatures -f/u vasculitis and autoimmune work up -GI f/u Thank you for this consultation. Will continue to follow along with you. Discussed with RN. Subjective Allergies: Coded Allergies: No Known Allergies (Unverified , 05/14/16) afebrile at RA abd pain improved Objective Last 24 Hour Vital Signs Date Time Temp Pulse Resp B/P (MAP) Pulse Ox O2 Delivery O2 Flow Rate FiO2 02/29/20 16:00 98.2 67 20 130/87 (101) 100 02/29/20 13:37 96.6 02/29/20 12:00 96.6 64 16 124/84 (97) 97 02/29/20 09:00 Room Air 02/29/20 08:00 97.7 79 20 127/83 (98) 98 02/29/20 04:00 97.3 61 19 123/94 (104) 98 02/29/20 00:00 97.7 63 19 112/68 (83) 98 02/28/20 21:00 Room Air 02/28/20 20:00 97.9 61 19 134/95 (108) 98 Height (Feet): 5 Height (Inches): 2.00 Weight (Pounds): 174 General Appearance: WD/WN HEENT: normocephalic, atraumatic Neck: non-tender, supple Respiratory/Chest: chest wall non-tender, lungs clear Cardiovascular/Chest: normal peripheral pulses, normal rate Abdomen: normal bowel sounds, non tender Extremities: normal range of motion, non-tender Microbiology Date/Time Source Procedure Growth Status 02/27/20 05:30 Blood Blood Culture - Preliminary NO GROWTH AFTER 24 HOURS Resulted 02/27/20 05:14 Blood Blood Culture - Preliminary NO GROWTH AFTER 24 HOURS Resulted Laboratory Tests Test 02/29/20 09:30 White Blood Count 5.0 K/UL (4.8-10.8) Red Blood Count 3.43 M/UL (4.20-5.40) L Hemoglobin 9.3 G/DL (12.0-16.0) L Hematocrit 29.3 % (37.0-47.0) L Mean Corpuscular Volume 86 FL (80-99) Mean Corpuscular Hemoglobin 27.1 PG (27.0-31.0) Mean Corpuscular Hemoglobin Concent 31.7 G/DL (32.0-36.0) L Red Cell Distribution Width 14.0 % (11.6-14.8) Platelet Count 334 K/UL (150-450) Mean Platelet Volume 4.7 FL (6.5-10.1) L Neutrophils (%) (Auto) 58.1 % (45.0-75.0) Lymphocytes (%) (Auto) 28.0 % (20.0-45.0) Monocytes (%) (Auto) 9.5 % (1.0-10.0) Eosinophils (%) (Auto) 2.6 % (0.0-3.0) Basophils (%) (Auto) 1.8 % (0.0-2.0) Erythrocyte Sedimentation Rate 30 MM/HR (0-30) Sodium Level 139 MMOL/L (136-145) Potassium Level 3.8 MMOL/L (3.5-5.1) Chloride Level 107 MMOL/L (98-107) Carbon Dioxide Level 30 MMOL/L (21-32) Anion Gap 2 mmol/L (5-15) L Blood Urea Nitrogen 5 mg/dL (7-18) L Creatinine 1.0 MG/DL (0.55-1.30) Estimat Glomerular Filtration Rate > 60 mL/min (>60) Glucose Level 81 MG/DL (74-106) Calcium Level 8.2 MG/DL (8.5-10.1) L Total Bilirubin 0.3 MG/DL (0.2-1.0) Aspartate Amino Transf (AST/SGOT) 36 U/L (15-37) Alanine Aminotransferase (ALT/SGPT) 24 U/L (12-78) Alkaline Phosphatase 141 U/L (46-116) H C-Reactive Protein, Quantitative < 0.4 mg/dL (0.00-0.90) Total Protein 6.0 G/DL (6.4-8.2) L Albumin 2.9 G/DL (3.4-5.0) L Globulin 3.1 g/dL Albumin/Globulin Ratio 0.9 (1.0-2.7) L Current Medications Medications (Trade) Dose Ordered Sig/Veronica Route PRN Reason Start Time Stop Time Status Last Admin Dose Admin Acetaminophen (Tylenol) 650 mg Q6H PRN ORAL Temp >100.5 02/26/20 01:45 03/27/20 01:44 Acetaminophen/ Hydrocodone Bitart ([place] 5/325) 2 tab Q6H PRN ORAL Moderate Pain (Pain Scale 4-6) 02/26/20 01:45 03/04/20 01:44 02/27/20 09:18 Dextrose/ Electrolytes 1,000 ml @ 75 mls/hr [id number] IV 02/26/20 02:30 03/27/20 02:29 02/29/20 13:05 Heparin Sodium (Porcine) (Heparin 5000 units/ml) 5,000 units EVERY 12 HOURS SUBQ 02/26/20 11:15 04/11/20 11:14 02/29/20 09:18 Morphine Sulfate (Morphine Sulfate) 2 mg Q4H PRN IVP Severe Pain (Pain Scale 7-10) 02/26/20 01:30 03/04/20 01:29 02/29/20 13:07 Ondansetron HCl (Zofran) 4 mg Q6H PRN IVP Nausea & Vomiting 02/26/20 01:30 03/27/20 01:29 02/29/20 13:05 Piperacillin Sod/ Tazobactam Sod 3.375 gm/Sodium Chloride 110 ml @ 27.5 mls/hr EVERY 8 HOURS IVPB 02/26/20 14:00 03/02/20 13:59 02/29/20 14:52 Zolpidem Tartrate (Ambien) 5 mg HSPRN PRN ORAL Insomnia 02/26/20 19:30 03/04/20 19:29 02/28/20 20:58 Cindi Bullard M.D. Feb 29, 2020 16:27
--- NOTE | 2020-02-29 18:11 | Internal Med Progress Note ---
Subjective Date of Service: Feb 29, 2020 Physician Name Ho Reynolds Attending Physician Sven Dalton MD Current Medications Medications (Trade) Dose Ordered Sig/Veronica Route PRN Reason Start Time Stop Time Status Last Admin Dose Admin Acetaminophen (Tylenol) 650 mg Q6H PRN ORAL Temp >100.5 02/26/20 01:45 03/27/20 01:44 Acetaminophen/ Hydrocodone Bitart ([place] 5/325) 2 tab Q6H PRN ORAL Moderate Pain (Pain Scale 4-6) 02/26/20 01:45 03/04/20 01:44 02/27/20 09:18 Dextrose/ Electrolytes 1,000 ml @ 75 mls/hr [id number] IV 02/26/20 02:30 03/27/20 02:29 02/29/20 13:05 Heparin Sodium (Porcine) (Heparin 5000 units/ml) 5,000 units EVERY 12 HOURS SUBQ 02/26/20 11:15 04/11/20 11:14 02/29/20 09:18 Morphine Sulfate (Morphine Sulfate) 2 mg Q4H PRN IVP Severe Pain (Pain Scale 7-10) 02/26/20 01:30 03/04/20 01:29 02/29/20 13:07 Ondansetron HCl (Zofran) 4 mg Q6H PRN IVP Nausea & Vomiting 02/26/20 01:30 03/27/20 01:29 02/29/20 13:05 Piperacillin Sod/ Tazobactam Sod 3.375 gm/Sodium Chloride 110 ml @ 27.5 mls/hr EVERY 8 HOURS IVPB 02/26/20 14:00 03/02/20 13:59 02/29/20 14:52 Zolpidem Tartrate (Ambien) 5 mg HSPRN PRN ORAL Insomnia 02/26/20 19:30 03/04/20 19:29 02/28/20 20:58 Allergies: Coded Allergies: No Known Allergies (Unverified , 05/14/16) ROS Limited/Unobtainable: No Constitutional: Reports: no symptoms HEENT: Reports: no symptoms Cardiovascular: Reports: no symptoms Respiratory: Reports: no symptoms Gastrointestinal/Abdominal: Reports: abdominal pain Genitourinary: Reports: no symptoms Neurologic/Psychiatric: Reports: no symptoms Subjective 54 YO F admitted with abdominal pain. Now pyelonephritis. Cover for Int Raudel-Dr Dalton Objective Last Vital Signs Date Time Temp Pulse Resp B/P (MAP) Pulse Ox O2 Delivery O2 Flow Rate FiO2 02/29/20 16:00 98.2 67 20 130/87 (101) 100 02/29/20 09:00 Room Air Laboratory Tests Test 02/29/20 09:30 White Blood Count 5.0 K/UL (4.8-10.8) Red Blood Count 3.43 M/UL (4.20-5.40) L Hemoglobin 9.3 G/DL (12.0-16.0) L Hematocrit 29.3 % (37.0-47.0) L Mean Corpuscular Volume 86 FL (80-99) Mean Corpuscular Hemoglobin 27.1 PG (27.0-31.0) Mean Corpuscular Hemoglobin Concent 31.7 G/DL (32.0-36.0) L Red Cell Distribution Width 14.0 % (11.6-14.8) Platelet Count 334 K/UL (150-450) Mean Platelet Volume 4.7 FL (6.5-10.1) L Neutrophils (%) (Auto) 58.1 % (45.0-75.0) Lymphocytes (%) (Auto) 28.0 % (20.0-45.0) Monocytes (%) (Auto) 9.5 % (1.0-10.0) Eosinophils (%) (Auto) 2.6 % (0.0-3.0) Basophils (%) (Auto) 1.8 % (0.0-2.0) Erythrocyte Sedimentation Rate 30 MM/HR (0-30) Sodium Level 139 MMOL/L (136-145) Potassium Level 3.8 MMOL/L (3.5-5.1) Chloride Level 107 MMOL/L (98-107) Carbon Dioxide Level 30 MMOL/L (21-32) Anion Gap 2 mmol/L (5-15) L Blood Urea Nitrogen 5 mg/dL (7-18) L Creatinine 1.0 MG/DL (0.55-1.30) Estimat Glomerular Filtration Rate > 60 mL/min (>60) Glucose Level 81 MG/DL (74-106) Calcium Level 8.2 MG/DL (8.5-10.1) L Total Bilirubin 0.3 MG/DL (0.2-1.0) Aspartate Amino Transf (AST/SGOT) 36 U/L (15-37) Alanine Aminotransferase (ALT/SGPT) 24 U/L (12-78) Alkaline Phosphatase 141 U/L (46-116) H C-Reactive Protein, Quantitative < 0.4 mg/dL (0.00-0.90) Total Protein 6.0 G/DL (6.4-8.2) L Albumin 2.9 G/DL (3.4-5.0) L Globulin 3.1 g/dL Albumin/Globulin Ratio 0.9 (1.0-2.7) L Microbiology Date/Time Source Procedure Growth Status 02/27/20 05:30 Blood Blood Culture - Preliminary NO GROWTH AFTER 24 HOURS Resulted 02/27/20 05:14 Blood Blood Culture - Preliminary NO GROWTH AFTER 24 HOURS Resulted Intake and Output 02/28/20 02/29/20 19:00 07:00 Intake Total 1820.0 ml 1762.5 ml Balance 1820.0 ml 1762.5 ml Intake Oral 960 ml 800 ml IV Total 860.0 ml 962.5 ml # Voids 5 5 # Bowel Movements 1 Objective PHYSICAL EXAMINATION: GENERAL: The patient is well-developed and well-nourished female, in no apparent distress. HEENT: Eyes, pupils are equal and responsive to light and accommodation. Extraocular movements are intact. NECK: Supple without lymphadenopathy. CHEST: Lungs are clear to auscultation bilaterally without wheezes or rales. CARDIOVASCULAR: Regular rhythm and rate. S1-S2 are normal without murmurs, rubs, or gallops. ABDOMEN: Soft, nondistended with decreased bowel sounds. Pain to palpation in the right lower quadrant. There is no rebound noted. Voluntary guarding is noted in the right lower quadrant. NEUROLOGIC: Cranial nerves II through XII are grossly intact without focal deficits. Motor strength is 5/5 bilaterally. Deep tendon reflexes are 2+ plantar. Assessment/Plan Assessment/Plan ASSESSMENT: This is a 54-year-old female. 1. Abdominal pain. 2. Nausea without vomiting. 3. Right flank pain. 4. Probable pyelonephritis. TREATMENT: 1. Abdominal pain/nausea. A Gastroenterology consultation has been obtained with Dr. Alvin Lopez. An MRI of the abdomen=diffuse edema of retroperitoneal fat. Surgery=Dr Hernandez. Differential includes right renal calculus versus pyelonephritis. The patient has been started empirically on intravenous Zosyn. We will follow recommendations of Gastroenterology and surgery Ho Reynolds MD Feb 29, 2020 18:11
--- NOTE | 2020-02-29 19:19 | NUR ---
HAND-OFF: Report given to DAINA Crystal. Pat[place] stable; no sign of distress at this time;
--- NOTE | 2020-02-29 19:30 | NUR ---
NURSE NOTES: Pt. received from DAINA Quach. Pt. AAOx4, no room air, breathing even and unlabored on room air, no indications of respiratory distress, no complaints of acute pain. IV right hand 24g noted, pt. complaining infiltrated; disconnected and will attempt reinsertion. Pt. ambulatory with steady gait. Bed low and locked, side rails x2 up, and call light in reach.
--- NOTE | 2020-02-29 19:41 | General Progress Note ---
Subjective Allergies: Coded Allergies: No Known Allergies (Unverified , 05/14/16) Subjective feels better tolerating PO d/w patient re all results Objective Last 24 Hour Vital Signs Date Time Temp Pulse Resp B/P (MAP) Pulse Ox O2 Delivery O2 Flow Rate FiO2 02/29/20 16:00 98.2 67 20 130/87 (101) 100 02/29/20 13:37 96.6 02/29/20 12:00 96.6 64 16 124/84 (97) 97 02/29/20 09:00 Room Air 02/29/20 08:00 97.7 79 20 127/83 (98) 98 02/29/20 04:00 97.3 61 19 123/94 (104) 98 02/29/20 00:00 97.7 63 19 112/68 (83) 98 02/28/20 21:00 Room Air 02/28/20 20:00 97.9 61 19 134/95 (108) 98 Intake and Output 02/28/20 02/29/20 19:00 07:00 Intake Total 1820.0 ml 1762.5 ml Balance 1820.0 ml 1762.5 ml Intake Oral 960 ml 800 ml IV Total 860.0 ml 962.5 ml # Voids 5 5 # Bowel Movements 1 Laboratory Tests 02/29/20 09:30: White Blood Count 5.0, Red Blood Count 3.43L, Hemoglobin 9.3L, Hematocrit 29.3L, Mean Corpuscular Volume 86, Mean Corpuscular Hemoglobin 27.1, Mean Corpuscular Hemoglobin Concent 31.7L, Red Cell Distribution Width 14.0, Platelet Count 334, Mean Platelet Volume 4.7L, Neutrophils (%) (Auto) 58.1, Lymphocytes (%) (Auto) 28.0, Monocytes (%) (Auto) 9.5, Eosinophils (%) (Auto) 2.6, Basophils (%) (Auto) 1.8, Erythrocyte Sedimentation Rate 30, Sodium Level 139, Potassium Level 3.8, Chloride Level 107, Carbon Dioxide Level 30, Anion Gap 2L, Blood Urea Nitrogen 5L, Creatinine 1.0, Estimat Glomerular Filtration Rate > 60, Glucose Level 81, Calcium Level 8.2L, Total Bilirubin 0.3, Aspartate Amino Transf (AST/SGOT) 36, Alanine Aminotransferase (ALT/SGPT) 24, Alkaline Phosphatase 141H, C-Reactive Protein, Quantitative < 0.4, Total Protein 6.0L, Albumin 2.9L, Globulin 3.1, Albumin/Globulin Ratio 0.9L Height (Feet): 5 Height (Inches): 2.00 Weight (Pounds): 174 Objective WDWN NCAT supple CTA RRR Abd soft no edema Assessment/Plan Assessment/Plan: Assessment - pelvic pain and initial perinephric stranding on outside CT - suspected renal d/o - but normal UA noted - now retroperitoneal and mesenteric inflammation on MRI --> ? sclerosing mesenteritis - CEA negative - GEMA and DS DNA negative - ESR negative - Anemia - now stable - OB (-) - Fe panel normal - Likely a response to primary inflammatory disorder - abnormal LFT, improving - negative MRI for biliary obstruction - negative hepatitis serologies - Likely a response to primary inflammatory disorder Recommendation - follow symptoms - po as tolerated - continue sq heparin - continue empiric abx - conservative management at this point, since improving - outpatient EGD/colon Alvin Lopez MD Feb 29, 2020 19:41
[2020-02-29 20:00] VITALS: BP 124/87
[2020-02-29] MEDS: Zolpidem 5mg tab ORAL PRN (21:40)
--- NOTE | 2020-02-29 23:52 | CDS Physician Query ---
PLEASE COMPLETE DOCUMENT BEFORE SIGNING Dear Dr. Ho Reynolds M.D. Date: 02/29/2020 CDIS/CDS Name: Ovidio Hilton Exercise your independent professional judgment when responding to the query.Questions asked do not imply a particular answer is desired or expected. CLINICAL DOCUMENTATION STATES: 54-year-old female who presents with a chief complaint of abdominal pain. [H&P Ho Reynolds M.D. 02/25] ASSESSMENT: Abdominal pain, Nausea without vomiting, Right flank pain, Probable pyelonephritis. Assessment: pelvic pain and initial perinephric stranding on outside CT - suspected renal d/o now retroperitoneal and mesenteric inflammation on MRI --> ? sclerosing mesenteritis Anemia likely a response to primary inflammatory disorder [ Alvin Simpson MD Feb 29, 2020 19:41] CLINICAL FINDINGS SHOW: MRI Abdomen no Contrast (02/25): Impression: Extensive edema, mostly of the retroperitoneal fat but also extending to some extent into the mesenteric root and into the left upper quadrant mesenteric fat. Small amount of associated free intraperitoneal fluid noted as well. Per discussion with referring physician, patient had prior outside CT scan suggesting bilateral pyelonephritis due to the presence of bilateral perinephric fat stranding. Findings could therefore be related to such. Note that no definite intrinsic renal parenchymal abnormality is demonstrated, but evaluation is limited in the absence of IV contrast. Note also that fatty infiltration in this extensive is unusual for nephritis, so the possibility of acute pancreatitis should also be considered. No definite intrinsic parenchymal abnormality noted except that the pancreas is equivocally slightly prominent Medications: Piperacillin Sod IV (02/25-03/02) Please respond to the following question: Is there a diagnosis specific to these symptoms or values? If so please state below. PHYSICIAN RESPONSE: [X ] Retroperitoneal Inflammatory [ ] Retroperitoneal abscess [ ] Sclerosing mesenteritis [ ] Mesenteric lymphadenitis [ ] Acute peritonitis [ ] Not Applicable [ ] Other Condition Present on Admission: [ X] Yes [ ] No [ ]Clinically Undeterminable Please also document in your Progress Notes and/or Discharge Summary and indicate if the condition was present on admission. MTDD
[2020-03-01] VITALS: BP 118/78
[2020-03-01 04:00] VITALS: BP 122/79
[2020-03-01] MEDS: Piperacillin/Tazobactam 3.375 GM in NS 110 ML IVPB SCH ×2 (05:06→14:09)
[2020-03-01 07:20] LABS: BASOPHILS % (AUTO) 3.2 % (0.0-2.0); EOSINOPHILS % (AUTO) 4.4 % (0.0-3.0); HEMATOCRIT 27.4 % (37.0-47.0); HEMOGLOBIN 8.7 G/DL (12.0-16.0); LYMPHOCYTES % (AUTO) 39.9 % (20.0-45.0); MEAN CORPUSCULAR VOLUME 86 FL (80-99); MONOCYTES % (AUTO) 8.5 % (1.0-10.0); PLATELET COUNT 304 K/UL (150-450); RED BLOOD COUNT 3.18 M/UL (4.20-5.40); RED CELL DISTRIBUTION WIDTH 14.1 % (11.6-14.8); WHITE BLOOD COUNT 5.5 K/UL (4.8-10.8)
--- NOTE | 2020-03-01 07:35 | NUR ---
NURSE HAND-OFF: Important Events on Shift:[IV inserted right forearm 24g] Patient Status: awake Diet: regular Pending Orders: na Pending Results/Labs:na Pending MD notification:na Latest Vital Signs: Temperature 97.7 , Pulse 61 , B/P 122 /79 , Respiratory Rate 20 , O2 SAT 97 , Room Air, O2 Flow Rate . Vital Sign Comment: Stable Latest Sales Fall Score: 35 Fall Risk: Medium Risk Safety Measures: Call light Within Reach, Bed Alarm Zone 1, Side Rails Side Rails x2, Bed position Low and Locked. Fall Precautions: Patient Fall Education Report given to DAINA Grace.
[2020-03-01 07:44] LABS: ALANINE AMINOTRANSFERASE 27 U/L (12-78); ALBUMIN 2.8 G/DL (3.4-5.0); ALKALINE PHOSPHATASE 126 U/L (46-116); ANION GAP 5 mmol/L (5-15); ASPARTATE AMINO TRANSFERASE 41 U/L (15-37); BILIRUBIN,TOTAL 0.2 MG/DL (0.2-1.0); BLOOD UREA NITROGEN 6 mg/dL (7-18); CALCIUM 8.4 MG/DL (8.5-10.1); CARBON DIOXIDE 29 MMOL/L (21-32); CHLORIDE 107 MMOL/L (98-107); CREATININE 0.9 MG/DL (0.55-1.30); SODIUM 141 MMOL/L (136-145)
--- NOTE | 2020-03-01 07:46 | NUR ---
NURSE NOTES: pt is in the bed alert and awake. respiration is even and unlabored. denies any pain and discomfort at this time. exchanged greetings with pt. no acute distress noted. call light within reach.
[2020-03-01 08:00] VITALS: BP 113/72
[2020-03-01] MEDS ORDERED: NS 275ml ONE (08:46)
[2020-03-01] MEDS ORDERED: Tubing IV Secondary IV ONE (08:46)
[2020-03-01] MEDS: Heparin 5000 units/ml inj SUBQ SCH (09:19)
--- NOTE | 2020-03-01 10:48 | Pulmonology Progress Note ---
Subjective ROS Limited/Unobtainable: No Allergies: Coded Allergies: No Known Allergies (Unverified , 05/14/16) Subjective abd pain much improved able to tolerate diet no SOB no CP pulse ox stable on RA Objective Last 24 Hour Vital Signs Date Time Temp Pulse Resp B/P (MAP) Pulse Ox O2 Delivery O2 Flow Rate FiO2 03/01/20 09:00 Room Air 03/01/20 08:00 97.3 82 20 113/72 (86) 99 03/01/20 04:00 97.7 61 20 122/79 (93) 97 03/01/20 00:00 97.7 63 18 118/78 (91) 98 02/29/20 21:00 Room Air 02/29/20 20:00 98.5 71 18 124/87 (99) 98 02/29/20 16:00 98.2 67 20 130/87 (101) 100 02/29/20 13:37 96.6 02/29/20 12:00 96.6 64 16 124/84 (97) 97 Intake and Output 02/29/20 03/01/20 19:00 07:00 Intake Total 1635.0 ml 1087.5 ml Balance 1635.0 ml 1087.5 ml Intake Oral 720 ml 200 ml IV Total 915.0 ml 887.5 ml # Voids 4 2 General Appearance: WD/WN HEENT: normocephalic, atraumatic Respiratory: chest wall non-tender, lungs clear, normal breath sounds, no respiratory distress Breasts: no masses Cardiovascular: normal peripheral pulses, normal rate Abdomen: normal bowel sounds, soft, non tender Genitourinary: normal external genitalia Extremities: no cyanosis Skin: no rash 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 normal Lymphatic: no neck adenopathy Laboratory Tests 03/01/20 06:15: White Blood Count 5.5, Red Blood Count 3.18L, Hemoglobin 8.7L, Hematocrit 27.4L, Mean Corpuscular Volume 86, Mean Corpuscular Hemoglobin 27.5, Mean Corpuscular Hemoglobin Concent 31.9L, Red Cell Distribution Width 14.1, Platelet Count 304, Mean Platelet Volume 4.5L, Neutrophils (%) (Auto) 44.0L, Lymphocytes (%) (Auto) 39.9, Monocytes (%) (Auto) 8.5, Eosinophils (%) (Auto) 4.4H, Basophils (%) (Auto) 3.2H, Sodium Level 141, Potassium Level 4.0, Chloride Level 107, Carbon Dioxide Level 29, Anion Gap 5, Blood Urea Nitrogen 6L, Creatinine 0.9, Estimat Glomerular Filtration Rate > 60, Glucose Level 86, Calcium Level 8.4L, Total Bilirubin 0.2, Aspartate Amino Transf (AST/SGOT) 41H, Alanine Aminotransferase (ALT/SGPT) 27, Alkaline Phosphatase 126H, Total Protein 5.6L, Albumin 2.8L, Globulin 2.8, Albumin/Globulin Ratio 1.0 Current Medications Medications (Trade) Dose Ordered Sig/Veronica Route PRN Reason Start Time Stop Time Status Last Admin Dose Admin Acetaminophen (Tylenol) 650 mg Q6H PRN ORAL Temp >100.5 02/26/20 01:45 03/27/20 01:44 Acetaminophen/ Hydrocodone Bitart ([place] 5/325) 2 tab Q6H PRN ORAL Moderate Pain (Pain Scale 4-6) 02/26/20 01:45 03/04/20 01:44 02/27/20 09:18 Dextrose/ Electrolytes 1,000 ml @ 75 mls/hr [id number] IV 02/26/20 02:30 03/27/20 02:29 02/29/20 23:55 Heparin Sodium (Porcine) (Heparin 5000 units/ml) 5,000 units EVERY 12 HOURS SUBQ 02/26/20 11:15 04/11/20 11:14 03/01/20 09:19 Morphine Sulfate (Morphine Sulfate) 2 mg Q4H PRN IVP Severe Pain (Pain Scale 7-10) 02/26/20 01:30 03/04/20 01:29 02/29/20 20:29 Ondansetron HCl (Zofran) 4 mg Q6H PRN IVP Nausea & Vomiting 02/26/20 01:30 03/27/20 01:29 02/29/20 20:29 Piperacillin Sod/ Tazobactam Sod 3.375 gm/Sodium Chloride 110 ml @ 27.5 mls/hr EVERY 8 HOURS IVPB 02/26/20 14:00 03/02/20 13:59 03/01/20 05:06 Zolpidem Tartrate (Ambien) 5 mg HSPRN PRN ORAL Insomnia 02/26/20 19:30 03/04/20 19:29 02/29/20 21:40 Assessment/Plan Assessment/Plan ASSESSMENT abdominal pain Perinephric stranding intially Retroperitoneal and mesenteric inflammation on MRI --> ? sclerosing mesenteritis Anemia History of gastric bypass History of cholecystectomy History of hysterectomy PLAN OF CARE MS floor all imaging noted empiric abx/ Zosyn - as per ID, IV fluids UA, UCX, BCX urine all negative RF, GEMA, dsDNA AB NGT HIV and hepatitis panel NGT DVT prophylaxis pain management antiemetic as needed monitor H&H with goal to keep Hgb above 7 stool OB NGT GI follows , recommended outpatient GI procedure, case discussed and evaluated by supervising physician Sri Boland NP Mar 01, 2020 10:48
[2020-03-01 12:00] VITALS: BP 127/88
[2020-03-01] MEDS: D5 1/2NS w/KCl 20mEq 1,000 ML IV SCH (14:09)
[2020-03-01 16:00] VITALS: BP 136/92
--- NOTE | 2020-03-01 16:55 | Internal Med Progress Note ---
Subjective Date of Service: Mar 01, 2020 Physician Name Ho Reynolds Attending Physician Sven Dalton MD Current Medications Medications (Trade) Dose Ordered Sig/Veronica Route PRN Reason Start Time Stop Time Status Last Admin Dose Admin Acetaminophen (Tylenol) 650 mg Q6H PRN ORAL Temp >100.5 02/26/20 01:45 03/27/20 01:44 Acetaminophen/ Hydrocodone Bitart ([place] 5/325) 2 tab Q6H PRN ORAL Moderate Pain (Pain Scale 4-6) 02/26/20 01:45 03/04/20 01:44 02/27/20 09:18 Dextrose/ Electrolytes 1,000 ml @ 75 mls/hr [id number] IV 02/26/20 02:30 03/27/20 02:29 03/01/20 14:09 Heparin Sodium (Porcine) (Heparin 5000 units/ml) 5,000 units EVERY 12 HOURS SUBQ 02/26/20 11:15 04/11/20 11:14 03/01/20 09:19 Morphine Sulfate (Morphine Sulfate) 2 mg Q4H PRN IVP Severe Pain (Pain Scale 7-10) 02/26/20 01:30 03/04/20 01:29 02/29/20 20:29 Ondansetron HCl (Zofran) 4 mg Q6H PRN IVP Nausea & Vomiting 02/26/20 01:30 03/27/20 01:29 02/29/20 20:29 Piperacillin Sod/ Tazobactam Sod 3.375 gm/Sodium Chloride 110 ml @ 27.5 mls/hr EVERY 8 HOURS IVPB 02/26/20 14:00 03/02/20 13:59 03/01/20 14:09 Zolpidem Tartrate (Ambien) 5 mg HSPRN PRN ORAL Insomnia 02/26/20 19:30 03/04/20 19:29 02/29/20 21:40 Allergies: Coded Allergies: No Known Allergies (Unverified , 05/14/16) ROS Limited/Unobtainable: No Constitutional: Reports: no symptoms HEENT: Reports: no symptoms Cardiovascular: Reports: no symptoms Respiratory: Reports: no symptoms Gastrointestinal/Abdominal: Reports: no symptoms Genitourinary: Reports: no symptoms Neurologic/Psychiatric: Reports: no symptoms Subjective 54 YO F admitted with abdominal pain. Now pyelonephritis. Cover for Int Raudel-Dr Dalton Objective Last Vital Signs Date Time Temp Pulse Resp B/P (MAP) Pulse Ox O2 Delivery O2 Flow Rate FiO2 03/01/20 12:00 97.9 63 21 127/88 (101) 99 03/01/20 09:00 Room Air Laboratory Tests Test 03/01/20 06:15 White Blood Count 5.5 K/UL (4.8-10.8) Red Blood Count 3.18 M/UL (4.20-5.40) L Hemoglobin 8.7 G/DL (12.0-16.0) L Hematocrit 27.4 % (37.0-47.0) L Mean Corpuscular Volume 86 FL (80-99) Mean Corpuscular Hemoglobin 27.5 PG (27.0-31.0) Mean Corpuscular Hemoglobin Concent 31.9 G/DL (32.0-36.0) L Red Cell Distribution Width 14.1 % (11.6-14.8) Platelet Count 304 K/UL (150-450) Mean Platelet Volume 4.5 FL (6.5-10.1) L Neutrophils (%) (Auto) 44.0 % (45.0-75.0) L Lymphocytes (%) (Auto) 39.9 % (20.0-45.0) Monocytes (%) (Auto) 8.5 % (1.0-10.0) Eosinophils (%) (Auto) 4.4 % (0.0-3.0) H Basophils (%) (Auto) 3.2 % (0.0-2.0) H Sodium Level 141 MMOL/L (136-145) Potassium Level 4.0 MMOL/L (3.5-5.1) Chloride Level 107 MMOL/L (98-107) Carbon Dioxide Level 29 MMOL/L (21-32) Anion Gap 5 mmol/L (5-15) Blood Urea Nitrogen 6 mg/dL (7-18) L Creatinine 0.9 MG/DL (0.55-1.30) Estimat Glomerular Filtration Rate > 60 mL/min (>60) Glucose Level 86 MG/DL (74-106) Calcium Level 8.4 MG/DL (8.5-10.1) L Total Bilirubin 0.2 MG/DL (0.2-1.0) Aspartate Amino Transf (AST/SGOT) 41 U/L (15-37) H Alanine Aminotransferase (ALT/SGPT) 27 U/L (12-78) Alkaline Phosphatase 126 U/L (46-116) H Total Protein 5.6 G/DL (6.4-8.2) L Albumin 2.8 G/DL (3.4-5.0) L Globulin 2.8 g/dL Albumin/Globulin Ratio 1.0 (1.0-2.7) Intake and Output 02/29/20 03/01/20 19:00 07:00 Intake Total 1635.0 ml 1087.5 ml Balance 1635.0 ml 1087.5 ml Intake Oral 720 ml 200 ml IV Total 915.0 ml 887.5 ml # Voids 4 2 Objective PHYSICAL EXAMINATION: GENERAL: The patient is well-developed and well-nourished female, in no apparent distress. HEENT: Eyes, pupils are equal and responsive to light and accommodation. Extraocular movements are intact. NECK: Supple without lymphadenopathy. CHEST: Lungs are clear to auscultation bilaterally without wheezes or rales. CARDIOVASCULAR: Regular rhythm and rate. S1-S2 are normal without murmurs, rubs, or gallops. ABDOMEN: Soft, nondistended with decreased bowel sounds. Pain to palpation in the right lower quadrant. There is no rebound noted. Voluntary guarding is noted in the right lower quadrant. NEUROLOGIC: Cranial nerves II through XII are grossly intact without focal deficits. Motor strength is 5/5 bilaterally. Deep tendon reflexes are 2+ plantar. Assessment/Plan Assessment/Plan ASSESSMENT: This is a 54-year-old female. 1. Abdominal pain. 2. Nausea without vomiting. 3. Right flank pain. 4. Probable pyelonephritis. TREATMENT: 1. Abdominal pain/nausea. A Gastroenterology consultation has been obtained with Dr. Alvin Lopez. An MRI of the abdomen=diffuse edema of retroperitoneal fat. Surgery=Dr Hernandez. Differential includes right renal calculus versus pyelonephritis. The patient has been started empirically on intravenous Zosyn. We will follow recommendations of Gastroenterology and surgery Ho Reynolds MD Mar 01, 2020 16:55
[2020-03-01] MEDS ORDERED: HYDROCODON-ACE1 EA15 ORAL (17:13)
[2020-03-01] MEDS ORDERED: ACETAMINOPHEN325 M1 ORAL (17:13)
--- NOTE | 2020-03-01 17:53 | Surgery Progress Note ---
Surgery Progress Note Subjective Symptoms: improved, tolerating diet, voiding well, passing flatus, BM, pain decreased Objective Last 24 Hour Vital Signs Date Time Temp Pulse Resp B/P (MAP) Pulse Ox O2 Delivery O2 Flow Rate FiO2 03/01/20 16:00 97.2 64 20 136/92 (107) 100 03/01/20 12:00 97.9 63 21 127/88 (101) 99 03/01/20 09:00 Room Air 03/01/20 08:00 97.3 82 20 113/72 (86) 99 03/01/20 04:00 97.7 61 20 122/79 (93) 97 03/01/20 00:00 97.7 63 18 118/78 (91) 98 02/29/20 21:00 Room Air 02/29/20 20:00 98.5 71 18 124/87 (99) 98 I&O Intake and Output 02/29/20 03/01/20 19:00 07:00 Intake Total 1635.0 ml 1087.5 ml Balance 1635.0 ml 1087.5 ml Intake Oral 720 ml 200 ml IV Total 915.0 ml 887.5 ml # Voids 4 2 Cardiovascular: RSR Respiratory: clear Abdomen: soft, non-tender, present bowel sounds Extremities: no edema, no tenderness, no cyanosis Laboratory Tests Test 03/01/20 06:15 White Blood Count 5.5 K/UL (4.8-10.8) Red Blood Count 3.18 M/UL (4.20-5.40) L Hemoglobin 8.7 G/DL (12.0-16.0) L Hematocrit 27.4 % (37.0-47.0) L Mean Corpuscular Volume 86 FL (80-99) Mean Corpuscular Hemoglobin 27.5 PG (27.0-31.0) Mean Corpuscular Hemoglobin Concent 31.9 G/DL (32.0-36.0) L Red Cell Distribution Width 14.1 % (11.6-14.8) Platelet Count 304 K/UL (150-450) Mean Platelet Volume 4.5 FL (6.5-10.1) L Neutrophils (%) (Auto) 44.0 % (45.0-75.0) L Lymphocytes (%) (Auto) 39.9 % (20.0-45.0) Monocytes (%) (Auto) 8.5 % (1.0-10.0) Eosinophils (%) (Auto) 4.4 % (0.0-3.0) H Basophils (%) (Auto) 3.2 % (0.0-2.0) H Sodium Level 141 MMOL/L (136-145) Potassium Level 4.0 MMOL/L (3.5-5.1) Chloride Level 107 MMOL/L (98-107) Carbon Dioxide Level 29 MMOL/L (21-32) Anion Gap 5 mmol/L (5-15) Blood Urea Nitrogen 6 mg/dL (7-18) L Creatinine 0.9 MG/DL (0.55-1.30) Estimat Glomerular Filtration Rate > 60 mL/min (>60) Glucose Level 86 MG/DL (74-106) Calcium Level 8.4 MG/DL (8.5-10.1) L Total Bilirubin 0.2 MG/DL (0.2-1.0) Aspartate Amino Transf (AST/SGOT) 41 U/L (15-37) H Alanine Aminotransferase (ALT/SGPT) 27 U/L (12-78) Alkaline Phosphatase 126 U/L (46-116) H Total Protein 5.6 G/DL (6.4-8.2) L Albumin 2.8 G/DL (3.4-5.0) L Globulin 2.8 g/dL Albumin/Globulin Ratio 1.0 (1.0-2.7) Plan Problems: (1) Acute pyelonephritis (2) Acute abdominal pain Assessment & Plan: The gallbladder is not visualized, presumably removed as a prior abdominal radiograph demonstrates cholecystectomy clips. There is mild ectasia of the common hepatic duct, which measures up to 9 mm in diameter. The common bile duct is normal in caliber, and there is no evidence of downstream obstructive lesion. Visualization of the intrahepatic ducts is somewhat limited as the dome of the liver is cut off of the exam on the coronal 3-D MRCP images, although intrahepatic ducts are visualized on the radial MRCP images. There is some free intraperitoneal fluid. There is considerable edema of the retroperitoneal fat completely surrounding both kidneys with fluid tracking inferiorly to the kidneys, probably along Gerota's fascia. There is fluid in the pelvis. There is also some edema of the left upper quadrant mesenteric fat. The pancreatic duct is mildly ectatic. The pancreas is equivocally slightly prominent but not frankly edematous. The kidneys are unremarkable in appearance except for a left renal cyst. The liver, spleen, adrenals are unremarkable. No retroperitoneal or mesenteric mass or adenopathy. There is equivocal minimal bladder wall thickening. Impression: Extensive edema, mostly of the retroperitoneal fat but also extending to some extent into the mesenteric root and into the left upper quadrant mesenteric fat. Small amount of associated free intraperitoneal fluid noted as well. Per discussion with referring physician, patient had prior outside CT scan suggesting bilateral pyelonephritis due to the presence of bilateral perinephric fat stranding. Findings could therefore be related to such. Note that no definite intrinsic renal parenchymal abnormality is demonstrated, but evaluation is limited in the absence of IV contrast. Note also that fatty infiltration in this extensive is unusual for nephritis, so the possibility of acute pancreatitis should also be considered. No definite intrinsic parenchymal abnormality noted except that the pancreas is equivocally slightly prominent The equivocal very slight wall thickening of the bladder Evidence of prior cholecystectomy. Mild ectasia of the common hepatic duct, likely related to postcholecystectomy state, but no evidence of biliary obstruction. (3) Dysphagia (4) Abdominal pain Assessment & Plan: 54F acute abdominal pain. now improved with hydration, abx, and pain meds abd exam benign. abd soft nt/nd bs+ flank pain discomfort no n/v//f/c labs noted MRI reviewed prior CT no acute surgical intervention cont abx cont fluids okay for diet MRI noted discussed with GI cont abx will follow with recs thank you (5) History of gastric bypass (6) Hx of cholecystectomy (7) Hx of hysterectomy Socrates Hernandez Mar 01, 2020 17:53
--- NOTE | 2020-03-01 18:11 | NUR ---
NURSE NOTES: Patient is discharged home without any signs of distress. Patient is alert and awake. A&O X 4. verbally responsive. Respiration is even and unlabored on room air. Denies any abdominal pain at this time. Patient has belongings; inventory paper signed. Patient did not bring home medications. Skin is clean and intact. Patient is provided with after-care instructions, provided medication teaching, and to follow-up with any MD's appointment, patient verbalized understanding. IV site and wrist band removed. Patient is discharged home in company of a male family member via a private vehicle.
--- NOTE | 2020-03-01 19:51 | General Progress Note ---
Subjective Allergies: Coded Allergies: No Known Allergies (Unverified , 05/14/16) Subjective feels better tolerating PO d/w patient re all results Objective Last 24 Hour Vital Signs Date Time Temp Pulse Resp B/P (MAP) Pulse Ox O2 Delivery O2 Flow Rate FiO2 03/01/20 16:00 97.2 64 20 136/92 (107) 100 03/01/20 12:00 97.9 63 21 127/88 (101) 99 03/01/20 09:00 Room Air 03/01/20 08:00 97.3 82 20 113/72 (86) 99 03/01/20 04:00 97.7 61 20 122/79 (93) 97 03/01/20 00:00 97.7 63 18 118/78 (91) 98 02/29/20 21:00 Room Air 02/29/20 20:00 98.5 71 18 124/87 (99) 98 Intake and Output 02/29/20 03/01/20 19:00 07:00 Intake Total 1635.0 ml 1087.5 ml Balance 1635.0 ml 1087.5 ml Intake Oral 720 ml 200 ml IV Total 915.0 ml 887.5 ml # Voids 4 2 Laboratory Tests 03/01/20 06:15: White Blood Count 5.5, Red Blood Count 3.18L, Hemoglobin 8.7L, Hematocrit 27.4L, Mean Corpuscular Volume 86, Mean Corpuscular Hemoglobin 27.5, Mean Corpuscular Hemoglobin Concent 31.9L, Red Cell Distribution Width 14.1, Platelet Count 304, Mean Platelet Volume 4.5L, Neutrophils (%) (Auto) 44.0L, Lymphocytes (%) (Auto) 39.9, Monocytes (%) (Auto) 8.5, Eosinophils (%) (Auto) 4.4H, Basophils (%) (Auto) 3.2H, Sodium Level 141, Potassium Level 4.0, Chloride Level 107, Carbon Dioxide Level 29, Anion Gap 5, Blood Urea Nitrogen 6L, Creatinine 0.9, Estimat Glomerular Filtration Rate > 60, Glucose Level 86, Calcium Level 8.4L, Total Bilirubin 0.2, Aspartate Amino Transf (AST/SGOT) 41H, Alanine Aminotransferase (ALT/SGPT) 27, Alkaline Phosphatase 126H, Total Protein 5.6L, Albumin 2.8L, Globulin 2.8, Albumin/Globulin Ratio 1.0 Height (Feet): 5 Height (Inches): 2.00 Weight (Pounds): 174 Objective WDWN NCAT supple CTA RRR Abd soft no edema Assessment/Plan Assessment/Plan: Assessment - pelvic pain and initial perinephric stranding on outside CT - suspected renal d/o - but normal UA noted - now retroperitoneal and mesenteric inflammation on MRI --> ? sclerosing mesenteritis - CEA negative - GEMA and DS DNA negative - ESR negative - Anemia - now stable - OB (-) - Fe panel normal - Likely a response to primary inflammatory disorder - abnormal LFT, improving - negative MRI for biliary obstruction - negative hepatitis serologies - Likely a response to primary inflammatory disorder Recommendation - follow symptoms - po as tolerated - continue sq heparin - continue empiric abx - conservative management at this point, since improving - outpatient EGD/colon - patient has my card. Understands her responsibility to call and set up f/u appt Alvin Lopez MD Mar 01, 2020 19:51
--- NOTE | 2020-03-03 08:50 | Discharge Summary ---
Discharge Summary Discharge Summary _ DATE OF ADMISSION: 02/26/2020 DATE OF DISCHARGE: 03/01/2020 DISCHARGED BY: Dr. Dalton REASON FOR ADMISSION: 54 years old female with past surgical history of gastric bypass in 2000, hysterectomy in 2007 and cholecystectomy in 1999 , presented for evaluation of lower abdominal pain. Patient initially presented to [facility] emergency department. CT scan of the abdomen revealed stranding around the bilateral kidney , consistent with pyelonephritis. Patient started on Zosyn and transferred to [facility] for insurance purposes. CONSULTANTS: pulmonary/critical care Dr. Gilmore ID specialist Dr. Bullard GI specialist Dr. Pimentel surgery Dr. Hernandez [facility] COURSE: Patient admitted to medical surgical floor. Patient started on IV fluids and empiric antibiotics. MRI of the abdomen revealed extensive edema, mostly of the retroperitoneal fat , but also extending to some extent into the mesenteric root and into the left upper quadrant mesenteric fat. Small amount of associated free intraperitoneal fluid noted as well. Per discussion with referring physician, patient had prior outside CT scan suggesting bilateral pyelonephritis due to the presence of bilateral perinephric fat stranding. Findings could therefore be related to such. Note that no definite intrinsic renal parenchymal abnormality was demonstrated, but evaluation was limited in the absence of IV contrast. Note also that fatty infiltration in this extensive is unusual for nephritis, so the possibility of acute pancreatitis should also be considered. No definite intrinsic parenchymal abnormality noted except that the pancreas is equivocally slightly prominent The equivocal very slight wall thickening of the bladder Evidence of prior cholecystectomy. Mild ectasia of the common hepatic duct, likely related to postcholecystectomy state, but no evidence of biliary obstruction. Patient had minimally elevated AST , ALT within normal limits. Urinalysis was negative. Urine and blood culture came were negative. No leukocytosis, no fevers. Patient was on empiric antibiotic while in the hospital. ID specialist cleared to DC antibiotic upon discharge. Vasculitis and autoimmune work-up were negative. . GEMA panel was negative. Rheumatoid factor was negative. ESR within normal range. Hepatitis panel and HIV test were negative. RPR was negative. CEA was within normal range. Hemoglobin and hematocrit were closely monitored with goal to keep hemoglobin above 7. Stool for occult blood was negative. Hemoglobin and hematocrit remained at baseline; and prior to discharge hemoglobin 8.7, hematocrit 27.4. Patient slowly started on diet as tolerated . DVT prophylaxis provided. Pain management was addressed as needed. GI specialist recommended conservative management at this time: pain was improved , and patient was clinically improving. Per GI specialist retroperitoneal and mesenteric inflammation seen on MRI , was led to question of possible sclerosing mesenteritis. GI specialist recommended outpatient EGD and colonoscopy. Patient clinically stabilized and was ready for discharge. 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 DISCHARGE INSTRUCTIONS: Patient was discharged home. Follow-up with the primary care provider in 1 week. Patient was recommended outpatient EGD and colonoscopy I have been assigned to dictate discharge summary for this account. Sri Boland NP Mar 03, 2020 08:50
== END 2020-03-01 18:10 | disposition home or self-care (01) | DRG 689 ==
LOC: 4E 02-26 00:35
DX: N10 Acute pyelonephritis (principal); K65.8 Other peritonitis; K65.4 Sclerosing mesenteritis; D64.9 Anemia, unspecified; Z90.49 Acquired absence of other specified parts of digestive tract; Z90.710 Acquired absence of both cervix and uterus; Z98.84 Bariatric surgery status; R13.10 Dysphagia, unspecified; Z88.6 Allergy status to analgesic agent
CPT/HCPCS: 36415; 74181; 80053; 81003; 82150; 82270; 82378; 82607; 82746; 83540; 83550; 83615; 83690; 83735; 84100; 85007; 85025; 85044; 85060; 85610; 85651; 85730; 86021; 86039; 86140; 86200; 86225; 86431; 86592; 86703; 86705; 86709; 86803; 87040; 87086; 87340; J2405